=== PATIENT | male | born 1950 | race Caucasian/White ===

== ENCOUNTER 2019-08-15 02:48 | Emergency (ER) | payer MEDICARE ==
--- NOTE | 2019-08-15 03:04 | EDM.PDOC ---
ED HPI GENERAL MEDICAL PROBLEM - General Chief Complaint: General Stated Complaint: MED. CLEARENCE Time Seen by Provider: 08/15/19 03:02 - History of Present Illness INITIAL COMMENTS - FREE TEXT/NARRATIVE: HISTORY AND PHYSICAL: History of present illness: Patient 68-year-old white male in custody of law enforcement who presents for medical clearance and has no complaints Review of systems: As per history of present illness and below otherwise all systems reviewed and negative. Past medical history: As per history of present illness and as reviewed below otherwise noncontributory. Surgical history: As per history of present illness and as reviewed below otherwise noncontributory. Social history: No reported history of drug or alcohol abuse. Family history: As per history of present illness and as reviewed below otherwise noncontributory. Physical exam: HEENT: Atraumatic, normocephalic, pupils reactive, negative for conjunctival pallor or scleral icterus, mucous membranes moist, throat clear, neck supple, nontender, trachea midline. Lungs: Clear to auscultation, breath sounds equal bilaterally, chest nontender. Heart: S1S2, regular, negative for clicks, rubs, or JVD. Abdomen: Soft, nondistended, nontender. Negative for masses or hepatosplenomegaly. Negative for costovertebral tenderness. Pelvis: Stable nontender. Genitourinary: Deferred. Rectal: Deferred. Extremities: Atraumatic, negative for cords or calf pain. Neurovascular unremarkable. Neuro: Awake, alert, oriented. Cranial nerves II through XII unremarkable. Cerebellum unremarkable. Motor and sensory unremarkable throughout. Exam nonfocal. Diagnostics: None Therapeutics: None Impression: 1 medical clearance for incarceration Definitive disposition and diagnosis as appropriate pending reevaluation and review of above. no pain Pain Score (Numeric/FACES): 0 - Related Data Allergies Allergy/AdvReac Type Severity Reaction Status Date / Time No Known Allergies Allergy Verified 10/23/18 17:53 Home Meds: Home Meds Terbinafine [LamISIL] 250 mg PO DAILY 08/15/19 [History] glipiZIDE [Glucotrol XL] 0 mg PO 08/15/19 [History] metFORMIN [Glucophage XR] 500 mg PO BIDMEALS 08/15/19 [History] Past Medical History - Past Health History Medical/Surgical History: Denies Medical/Surgical History - Infectious Disease History Infectious Disease History: Reports: Measles, Mumps Social & Family History - Family History Family Medical History: Noncontributory - Caffeine Use Caffeine Use: Reports: Tea ED ROS GENERAL - Review of Systems Review Of Systems: ROS reveals no pertinent complaints other than HPI. ED EXAM, GENERAL - Physical Exam Exam: See Below (Dictation) Course - Vital Signs Last Recorded V/S: Last Vital Signs Temp 36.0 C 08/15/19 02:56 Pulse 111 H 08/15/19 02:56 Resp 18 08/15/19 02:56 BP 145/82 H 08/15/19 02:56 Pulse Ox 96 08/15/19 02:56 - Orders/Labs/Meds Labs: Laboratory Tests 08/15/19 Range/Units 02:56 POC Glucose 93 (60-110) mg/dL Departure - Departure Time of Disposition: 03:03 Disposition: Home, Self-Care 01 Condition: Good Clinical Impression: Medical clearance for incarceration - Discharge Information Referrals: PCP,None [Primary Care Provider] - Additional Instructions: The following information is given to patients seen in the emergency department who are being discharged to home. This information is to outline your options for follow-up care. We provide all patients seen in our emergency department with a follow-up referral. The need for follow-up, as well as the timing and circumstances, are variable depending upon the specifics of your emergency department visit. If you don't have a primary care physician on staff, we will provide you with a referral. We always advise you to contact your personal physician following an emergency department visit to inform them of the circumstance of the visit and for follow-up with them and/or the need for any referrals to a consulting specialist. The emergency department will also refer you to a specialist when appropriate. This referral assures that you have the opportunity for followup care with a specialist. All of these measure are taken in an effort to provide you with optimal care, which includes your followup. Under all circumstances we always encourage you to contact your private physician who remains a resource for coordinating your care. When calling for followup care, please make the office aware that this follow-up is from your recent emergency room visit. If for any reason you are refused follow-up, please contact the [facility] emergency department at and asked to speak to the emergency department charge nurse. Follow-up primary medical doctor as needed as discussed return as needed as discussed
== END 2019-08-15 03:10 ==
LOC: MW.ED 02:48
DX: Z02.89 Encounter for other administrative examinations (principal)
CPT/HCPCS: 82962; 99283

== ENCOUNTER 2020-01-31 07:08 | Emergency (ER) | payer MEDICARE ==
[2020-01-31 08:39] LABS: BLOOD UREA NITROGEN,BUN 21 mg/dL (7.0-18.0); CARBON DIOXIDE,CO2 28.8 mmol/L (21.0-32.0); CHLORIDE,CL 104 mmol/L (98-107); GLUCOSE RANDOM 110 mg/dL (74-106); POTASSIUM,K 3.9 mmol/L (3.5-5.1); SODIUM,NA 140 mmol/L (136-148)
--- NOTE | 2020-01-31 09:11 | CR ---
Left toes: 3 views of the left toe were obtained. Cystic lesion is noted within the distal phalanx which is well corticated and believed to be old. Mild degenerative change is noted within the first MTP joint. No acute fracture or other bony abnormality is appreciated. Impression: 1. Findings as noted above. 2. No acute bony abnormality is appreciated. Diagnostic code #2 Study was dictated in MDT
--- NOTE | 2020-01-31 09:11 | CR ---
Chest: 2 views of the chest were obtained. Comparison: No prior chest imaging is available. Nodule is noted within the upper right lung most likely representing granuloma. Lungs otherwise are clear with no acute parenchymal change. Mild scoliosis and degenerative change is noted within the spine. Heart size and mediastinum are within normal limits. Minimal scoliosis is noted. Impression: 1. Findings as noted above. 2. Nothing acute is identified. Diagnostic code #2 Study was dictated in MDT
--- NOTE | 2020-01-31 09:32 | EDM.PDOC ---
ED [facility] GENERAL MEDICAL PROBLEM - General Chief Complaint: Laceration Stated Complaint: SOMETHING STUCK IN BIG TOE Time Seen by Provider: 01/31/20 08:24 - History of Present Illness INITIAL COMMENTS - FREE TEXT/NARRATIVE: HPI 69-year-old male with DM presents for evaluation of a punctate lesion on his left great toe that occurred ~2 hours [employer] when he accident dropped a clean pocket knife that struck the dorsal aspect of his toe at the base of the nail with the point of the blade. Patient denies further symptoms. Patient denies chest pain, shortness breath, lightheadedness. TD up to date. Triage note: Pt dropped knife on toe and knife got stuck in foot. Pt is ambulatory. no resp distress. skin pink warm and dry. no resp distress. pt does present to the er in n95 mask and gloves. anxiety noted. M/S/F/SocHx notable for: diabetes; remainder reviewed with patient and in chart. ROS: Negative constitutional, eye, cardiovascular, pulmonary, GI, , MSK, skin , neurologic, psychiatric, endocrine unless noted in the HPI. Exam HR 103, RR 16, BP 140/82, T 36.1C, SaO2 97% on room air. Gen: Pleasant, non-toxic appearing, resting comfortably. HEENT: NC, AT, PEERL, EOMI. Resp: Clear to auscultation bilaterally, normal work of breathing, no accessory muscle usage. Card: irregular regular rate, normal rhythm with no murmurs, rubs, or gallops, extremities warm and well perfused. GI: Non-tender to palpation throughout all quadrants, no focal tenderness at McBurney's point, negative Love's sign, non-distended, no rebound or guarding. : No suprapubic tenderness to palpation. MSK: left great toe visually normal with the exception of approximately 4 mm long clean laceration that is oriented along the length of the toe, laceration is at the mid nail bed base, brisk distal capillary refill with sensation at baseline. Skin: Normal color with no visible lesions. Neuro: alert and oriented 3, no facial asymmetry, vision and hearing WNL. Psych: Mood and affect appropriate. Labs / Imaging: EKG: AFib with a ventricular rate of 123 bpm, no new ST segment changes, new LBBB, or T-wave changes that would suggest acute ischemia. CXR: Nodule is noted within the upper right lung most likely representing granuloma. Lungs otherwise are clear with no acute parenchymal change. Mild scoliosis and degenerative change is noted within the spine. Heart size and mediastinum are within normal limits. Minimal scoliosis is noted. Impression: 1. Findings as noted above. 2. Nothing acute is identified. XR L Great Toe: Cystic lesion is noted within the distal phalanx which is well corticated and believed to be old. Mild degenerative change is noted within the first MTP joint. No acute fracture or other bony abnormality is appreciated. Impression: 1. Findings as noted above. 2. No acute bony abnormality is appreciated. WBC 7.51, HB 15.0, Na 140, K 3.9, glucose 110, magnesium 1.6, troponin <0.050, TSH 2.24, free T4 1.24, creatinine 0.8. MDM Previous chart, nursing note, labs, imaging, and vitals reviewed. A: 69-year-old male with DM presents for evaluation of a punctate lesion on his left great toe that occurred ~2 hours [employer] when he accident dropped a clean pocket knife that struck the dorsal aspect of his toe at the base of the nail with the point of the blade. Evaluation: Laceration - with respect to the patients laceration, this should heal well by secondary intention, the patient is a clean, and up-to-date tetanus. X-ray without evidence of radiographic abnormality. Atrial fibrillation - Patient was noted on pulse oximetry to have an irregular waveform, ECG obtained, patient in atrial fibrillation. With respect to the patients atrial fibrillation he is asymptomatic and has resting heart rate within acceptable limits. As such AV mara agents are not presently indicated. The etiology of the patients atrial fibrillation is currently of unclear, as is the duration of his atrial fibrillation. The patients H&H is within acceptable limits. There is no clear evidence of heart failure by exam or imaging. There is no clear evidence of active infectious process by exam or imaging. The patients ECG is without evidence of changes suggestive of myocarditis, pericarditis, and is troponin is negative. TSH is within normal limits. And, given the absence of chest pain, prior DVT or PE, or other identifiable risk factors further investigation with respect to a PE is not presently indicated. History is without evidence of recent alcohol, caffeine, or other stimulant use that may have triggered todays episode. Patients habitus is not strongly suggestive of IZABEL. Idiopathic is most prominent on the differential given the patients age. With respect anticoagulation, the patient s CHADS-VASc score is 2 (Age - 1, Gender - 0, CHF - 0, HTN - 0, Stroke/TIA/ Thromboembolism - 0, Vascular Disease - 0, DM - 1). However, the patient is suspected to have vascular disease as well as hypertension (not formally diagnosed), as such anticoagulation would be appropriate. After discussion with the patient regarding anticoagulation options for their atrial fibrillation including risks and benefits of different treatment options Apixiban was chosen for anticoagulation. [As the patient weighs > 60 kg, has a Cr < 1.5 mg/dL, and a is not taking any strong CY inducers (Carbamazepine, Enzalutamide, Fosphenytoin, Lumacaftor, Mitotane, Phenobarbital, Phenytoin, Primidone, Rifabutin, Rifampin, or Rifapentine - per patient and chart), the were prescribed 5 mg BID for stroke prophylaxis for their atrial fibrillation. With respect to electrolytes, mild hypomagnesemia noted, patient instructed to increase dietary intake of magnesium and potassium rich foods. Patient to follow up with PCP within 48 hours. Impression: laceration, atrial fibrillation. foot Pain Score (Numeric/FACES): 5 - Related Data Allergies Allergy/AdvReac Type Severity Reaction Status Date / Time No Known Allergies Allergy Verified 01/31/20 07:19 Home Meds: Home Meds Terbinafine [LamISIL] 250 mg PO DAILY 08/15/19 [History] glipiZIDE [Glucotrol XL] 0 mg PO DAILY 08/15/19 [History] metFORMIN [Glucophage XR] 500 mg PO BIDMEALS 08/15/19 [History] Apixaban [Eliquis] 5 mg PO BID #60 tablet 01/31/20 [Rx] Past Medical History - Past Health History Medical/Surgical History: Denies Medical/Surgical History HEENT History: Reports: None Cardiovascular History: Reports: None Respiratory History: Reports: None Gastrointestinal History: Reports: None Genitourinary History: Reports: None Neurological History: Reports: None Psychiatric History: Reports: None Endocrine/Metabolic History: Reports: Diabetes, Type II Hematologic History: Reports: None Immunologic History: Reports: None Oncologic (Cancer) History: Reports: None Dermatologic History: Reports: None - Infectious Disease History Infectious Disease History: Reports: Chicken Pox, Measles, Mumps - Past Surgical History Head Surgeries/Procedures: Reports: None Social & Family History - Family History Family Medical History: Noncontributory - Tobacco Use Smoking Status *Q: Never Smoker - Caffeine Use Caffeine Use: Reports: Tea - Recreational Drug Use Recreational Drug Use: No ED ROS GENERAL - Review of Systems Review Of Systems: See Below ED EXAM, SKIN/RASH Exam: See Below Course - Vital Signs Last Recorded V/S: Last Vital Signs Temp 36.1 C 01/31/20 07:20 Pulse 91 01/31/20 08:34 Resp 16 01/31/20 08:34 BP 138/95 H 01/31/20 08:34 Pulse Ox 98 01/31/20 08:34 - Orders/Labs/Meds Orders: Active Orders 24 hr Category Date Time Status EKG Documentation Completion [RC] STAT Care 01/31/20 07:33 Active Labs: Laboratory Tests 01/31/20 01/31/20 Range/Units 08:00 08:00 WBC 7.51 (4.0-11.0) K/uL RBC 4.84 (4.50-5.90) M/uL Hgb 15.0 (13.0-17.0) g/dL Hct 45.1 (38.0-50.0) % MCV 93.2 (80.0-98.0) fL MCH 31.0 (27.0-32.0) pg MCHC 33.3 (31.0-37.0) g/dL RDW Std Deviation 46.0 (28.0-62.0) fl RDW Coeff of Negro 14 (11.0-15.0) % Plt Count 224 (150-400) K/uL MPV 10.40 (7.40-12.00) fL Neut % (Auto) 44.0 L (48.0-80.0) % Lymph % (Auto) 39.5 (16.0-40.0) % Wirt % (Auto) 12.4 (0.0-15.0) % Eos % (Auto) 3.6 (0.0-7.0) % Baso % (Auto) 0.5 (0.0-1.5) % Neut # (Auto) 3.3 (1.4-5.7) K/uL Lymph # (Auto) 3.0 H (0.6-2.4) K/uL Wirt # (Auto) 0.9 H (0.0-0.8) K/uL Eos # (Auto) 0.3 (0.0-0.7) K/uL Baso # (Auto) 0.0 (0.0-0.1) K/uL Nucleated RBC % 0.0 /100WBC Nucleated RBCs # 0 K/uL Sodium 140 (136-148) mmol/L Potassium 3.9 (3.5-5.1) mmol/L Chloride 104 (98-107) mmol/L Carbon Dioxide 28.8 (21.0-32.0) mmol/L BUN 21 H (7.0-18.0) mg/dL Creatinine 0.8 (0.8-1.3) mg/dL Est Cr Clr Drug Dosing 92.52 mL/min Estimated GFR (MDRD) > 60.0 ml/min Glucose 110 H (74-106) mg/dL Calcium 9.2 (8.5-10.1) mg/dL Magnesium 1.6 L (1.8-2.4) mg/dL Troponin I < 0.050 (0.000-0.056) ng/mL Free T4 1.24 (0.76-1.46) ng/dL TSH 3rd Generation 2.24 (0.36-3.74) uIU/mL Departure - Departure Time of Disposition: 09:30 Disposition: Home, Self-Care 01 Clinical Impression: Laceration, Atrial fibrillation - Discharge Information Prescriptions: Apixaban [Eliquis] 5 mg PO BID #60 tablet Referrals: PCP,None [Primary Care Provider] - Additional Instructions: You were in seen in the [facility] Emergency Department for evaluation of a cut on your left great toe. You were found have a clean cut that should heal well if you keep your wound clean and dry. Should you develop redness, swelling, tenderness, discharge, fevers, or any new symptoms please return immediately to the emergency department. You were also noted to have an irregular heartbeat while you are in the emergency department. This is called atrial fibrillation. This irregular heartbeat can lead to strokes or other serious conditions. You have been prescribed a blood thinner to reduce your risk of having a stroke. As we discussed, this medication increases your risk of bleeding. Should you have any injuries, dark stools, falls, hit your head, or feel lightheaded please return immediately to the emergency department. You need to follow up with your primary care physician within 48 hours for further care. You were also noted to have a mildly low magnesium level, please increase your dietary intake of magnesium rich foods such as bananas, avocados, leafy greens, and legumes. Please read and follow all of the instructions below. You were also noted to have some minor abnormalities on your chest x-ray and x- ray of your toe. These are believed to be nonemergent issues that you should discuss with your primary care physician. A copy of your radiology reports is enclosed below. CXR: Nodule is noted within the upper right lung most likely representing granuloma. Lungs otherwise are clear with no acute parenchymal change. Mild scoliosis and degenerative change is noted within the spine. Heart size and mediastinum are within normal limits. Minimal scoliosis is noted. Impression: 1. Findings as noted above. 2. Nothing acute is identified. XR L Great Toe: Cystic lesion is noted within the distal phalanx which is well corticated and believed to be old. Mild degenerative change is noted within the first MTP joint. No acute fracture or other bony abnormality is appreciated. Impression: 1. Findings as noted above. 2. No acute bony abnormality is appreciated. When calling for follow-up care, please make the office aware that this follow- up is from your recent emergency room visit. If for any reason you are refused follow-up, please contact the [facility] Emergency Department at and asked to speak to the emergency department charge nurse. Your care today was limited to identifying and treating emergent medical problems only. Many people have subtle differences in their test results that require follow up with their outpatient physician(s) to correctly determine if this represents a normal variation or concerning abnormality with respect to your specific health. The care given to you today was limited to identifying and treating emergent medical problems - you need to request a copy of all of your medical records from today's visit and follow up with your outpatient physician(s) to review both today's visit and your overall health. If you have any new symptoms or if you are at all concerned about your health please return immediately to the emergency department. Prescriptions: If you are uninsured or have financial difficulties with filling your prescription(s), you may consider using a free pharmacy discount service such as [employer] ([employer]) or [employer] ([employer]). These services allow you to search for a medication on your phone (or computer) and obtain a coupon that usually has a significant discount from the list garcia at a pharmacy. Your physician as well as [facility] does not have a financial relationship with either of these services. You may also wish to speak with your physician to determine if lower cost prescriptions are possible. Obtaining primary care: 1. [facility] provides pediatrics (children), family medicine (children, adults, and some obstetrical care), and internal medicine (adults). Further specialty care is also available. Same day appointments are available. They may be contacted at [phone] and are open Saturday through Saturday 8 AM to 5 PM. The [facility] are located at [facility], [address] [place] [address] 58. 2. [facility] offers family medicine, internal medicine, women health, and further specialty care. [facility] may be contacted at [phone]. [facility] is located at [address] [place], [place] [id number]. 3. If you have health insurance, please also contact your insurer for a list of accepting providers under your policy, you may contact these providers for further health care. Occupational health: Work related injuries may consider following up with [facility], . Occupational health services are located at [address] [place] [phone] and are open Saturday through Saturday from 7: 30 am to 5:00 pm. Obstetrical and Gynecological Care: [facility], , Saturday through Saturday 8 AM to 5 PM[address] [place] [address]. Eyecare: If you have an eye injury you should follow up with your technology sales consultant or with [facility], at [phone] or [phone] , they are located at [address] [place] [address]. Dental Care Pete Allen DDS. [address] [facility] [place], [place]. Ph. [phone] Jpkory Bonilla Tiffany DDS MS. [address] [facility] [address], [place], [place]. Ph. [phone] Ashok Cordova DDS. 10 10/[address] [place] [address], [place]. Ph. [phone] Bunny Ryder DDS. [address] [facility] [address] [place]. Ph. [phone] Augie Bradshaw DDS PC. [address] [facility] [address] [place], [place]. Ph. Alexandria Muñoz DDS. [address] [facility]. Ph. [phone] [facility]. [address] [place], [place]. Ph. [phone] [facility]. [address], [place], [place]. Ph. [phone] [facility] [address] [place] [id number]. Ph. [facility]. [address] [place] [address] [address] [place]. Ph. [facility]. [address] [place], [place]. Ph. What is atrial fibrillation and atrial flutter? Atrial fibrillation and flutter are a common heart rhythm problem. This condition puts you at risk of stroke, heart attack, and other problems. Another term for atrial fibrillation is "A-fib. Atrial flutter is also called A- flutter. In people with these rhythms, the electrical signals that control the heartbeat are abnormal. As a result, the top 2 chambers of the heart stop pumping effectively, and a small amount of the blood that should move out of these chambers gets left behind. As the blood pools, it can start to form clots. These clots can travel to the brain through the blood vessels, and cause strokes. In some people, these rhythms never go away. In others, these can come and go, even with treatment. If you had one or more bouts of atrial fibrillation or flutter, but have a normal heart rhythm now, ask your doctor what you can do to keep your atrial fibrillation or flutter from coming back. Some people can reduce their chances of having atrial fibrillation or flutter again by: Controlling their blood pressure Not drinking a lot of alcohol in one sitting (limit to 1 to 2 drinks in one day) Cutting down on caffeine Getting treatment for an overactive thyroid gland Getting regular exercise Losing weight (if they are overweight) What are the symptoms of atrial fibrillation or flutter?Some people with atrial fibrillation or flutter have no symptoms. When symptoms do occur, they can include: Feeling as though your heart is racing, skipping beats, or beating out of sync Mild chest "tightness" or pain Feeling lightheaded, dizzy, or like you might pass out Having trouble breathing, especially with exercise Is there a test for atrial fibrillation or flutter? Yes. If your doctor or nurse suspects you have atrial fibrillation or flutter, he or she will probably do a test called an electrocardiogram. This test, also known as an "ECG" or "EKG," measures the electrical activity in your heart. How is atrial fibrillation or flutter treated?In some cases, atrial fibrillation or flutter goes away on its own, even without treatment. But some people do need treatment. Treatment can include one or more of these: Medicines to control the speed or rhythm of the heartbeat Medicines to keep clots from forming A treatment called "cardioversion" that involves applying a mild electrical current to the heart to fix its rhythm Treatments called "ablation," which use heat ("radiofrequency ablation") or cold ("cryoablation") to destroy the small part of the heart that is sending abnormal electrical signals A device called a pacemaker that is implanted in your body and sends electrical signals to the heart to control the heartbeat What will my life be like? Many people with atrial fibrillation or flutter are able to live normal lives. Still, it is important that you take the medicines your doctor prescribes every day. Taking your medicines as directed can help reduce the chances that your Atrial fibrillation or flutter will cause a stroke. Apixaban (Brand Names: Eliquis) * Please take this medication as prescribed. * Please take the medication for the full duration of the prescription. * If you feel you are experiencing a side effect, please call your physician or the emergency department. * This is a blood thinner used to prevent and treat the formation of clots in your blood vessels. This includes clots in the deep veins of your upper or lower extremities (deep vein thromboses), clots in your lungs (pulmonary embolism), or prevention of clots due to an irregular heart beat (atrial fibrillation). * Tell all health care providers that you are on this medication. Apixaban Side Effects: * This is a blood thinner - it is used to prevent life threatening clots in the lungs as well as strokes. However it will increase your risk of both serious and minor bleeding. It was prescribed because your doctor felt that benefits significantly outwieghed the risks. However, Apixaban increases the risk of serious bleeding into your head (hemorrhagic stroke), gastrointestinal bleeding , and bleeding if you suffer a traumatic injury. You may also experience longer periods of bleeding after minor injuries or from your gums when brushing your teeth. Talk to your doctor before taking this medication if you have any of the following: * If you have an allergy to apixaban or any other part of this drug. * If you are allergic to any drugs like this one, any other drugs, foods, or other substances. Tell your doctor about the allergy and what signs you had, like rash; hives; itching; shortness of breath; wheezing; cough; swelling of face, lips, tongue, or throat; or any other signs. * If you have any of these health problems: Active bleeding or liver problems. * If you have had a heart valve replaced. * If you are taking any of these drugs: Carbamazepine, phenytoin, rifampin, or May's wort. * This is not a list of all drugs or health problems that interact with this drug. * Tell your doctor and pharmacist about all of your drugs (prescription or OTC, natural products, vitamins) and health problems. You must check to make sure that it is safe for you to take this drug with all of your drugs and health problems. Do not start, stop, or change the dose of any drug without checking with your doctor. Apixaban Precautions: * If you fall or hurt yourself, or if you hit your head, call your doctor right away. Talk with your doctor even if you feel fine. * You may bleed more easily. Be careful and avoid injury. Use a soft toothbrush and an electric razor. * Very bad and sometimes deadly bleeding problems have happened with this drug. Talk with the doctor. * If you are 80 or older, use this drug with care. You could have more side effects. * Tell your doctor if you are or plan on getting . You will need to talk about the benefits and risks of using this drug while you are . * Tell your doctor if you are breast-feeding. You will need to talk about any risks to your baby. * Do not run out of this medication. Call your doctor well before your prescription runs out. Apixaban Drug Interactions: * The effects of some drugs can change if you take other drugs or herbal products at the same time. This can increase your risk for serious side effects or may cause your medications not to work correctly. These drug interactions are possible, but do not always occur. Your doctor or pharmacist can often prevent or manage interactions by changing how you use your medications or by close monitoring. * To help your doctor and pharmacist give you the best care, be sure to tell your doctor and pharmacist about all the products you use (including prescription drugs, nonprescription drugs, and herbal products) before starting treatment with this product. While using this product, do not start, stop, or change the dosage of any other medicines you are using without your doctor's approval. * Some products that may interact with this drug include: Carbamazepine; Enzalutamide; Fosphenytoin; Lumacaftor; Mitotane; phenobarbital; Phenytoin; Primidone; Rifabutin; Rifampin; Rifapentine, Omacetaxine, Abiraterone Acetate; Amiodarone; Asunaprevir; AtorvaSTATin; Azithromycin (Systemic); Carvedilol; Crizotinib; CycloSPORINE (Systemic); Daclatasvir; Dipyridamole; Dronedarone; Eliglustat; Erythromycin (Systemic); Flibanserin; Ibrutinib; Ivacaftor; Lapatinib; Ledipasvir; Lomitapide; Mefloquine; Mirabegron; NiCARdipine; Nilotinib; Progesterone; Propafenone; Propranolol; QuiNIDine; QuiNINE; Ranolazine; Reserpine; Rolapitant; Simeprevir; SUNItinib; Tacrolimus (Systemic) ; Tamoxifen; Vandetanib; Vemurafenib; Verapamil. Please notify your doctor and pharmacist if you are on any of these medications or start these medications while on Apixaban. * This document does not contain all possible drug interactions. Keep a list of all the products you use. Share this list with your doctor and pharmacist to lessen your risk for serious medication problems. Sepsis Event Note - Evaluation Sepsis Screening Result: No Definite Risk - Focused Exam Vital Signs: Vital Signs Temp Pulse Resp BP Pulse Ox 01/31/20 08:34 91 16 138/95 H 98 01/31/20 07:20 36.1 C 103 H 16 140/82 97 Date Exam was Performed: 01/31/20 Time Exam was Performed: 09:30 - My Orders Last 24 Hours: My Active Orders 01/31/20 07:33 EKG Documentation Completion [RC] STAT - Assessment/Plan Last 24 Hours: My Active Orders 01/31/20 07:33 EKG Documentation Completion [RC] STAT
== END 2020-01-31 09:50 | disposition home or self-care (01) ==
LOC: MW.ED 07:08
DX: S91.112A Laceration without foreign body of left great toe without damage to nail, initial encounter (principal); I48.91 Unspecified atrial fibrillation; E11.9 Type 2 diabetes mellitus without complications; Z79.84 Long term (current) use of oral hypoglycemic drugs; Z79.01 Long term (current) use of anticoagulants; W20.8XXA Other cause of strike by thrown, projected or falling object, initial encounter
CPT/HCPCS: 36415; 71046; 71046-26; 73660-26-TA; 73660-TA; 80048; 83735; 84439; 84443; 84484; 85025; 93005; 99283-25; 99285

== ENCOUNTER 2020-11-21 15:54 | Inpatient (IN) | payer MEDICARE ==
[2020-11-21] MEDS ORDERED: Sodium Chloride 0.9% 10 ML Syringe FLUSH PRN (16:14)
[2020-11-21] MEDS ORDERED: Sodium Chloride 0.9% 2.5 ML Syringe FLUSH PRN (16:14)
[2020-11-21] MEDS ORDERED: Diltiazem 25 MG/5 ML SDV IVPUSH ONE (16:17)
--- NOTE | 2020-11-21 16:23 | EDM.PDOC ---
ED HPI GENERAL MEDICAL PROBLEM - General Chief Complaint: Respiratory Problem Stated Complaint: TROUBLE BREATHING Time Seen by Provider: 11/21/20 15:56 Source of Information: Reports: Patient History Limitations: Reports: No Limitations - History of Present Illness INITIAL COMMENTS - FREE TEXT/NARRATIVE: 70-year-old male past medical history hypertension, fluid retention on Lasix, A. fib (denies beta-christianne or anticoagulant use) presents for shortness of breath worsening over the last month. He has noted subjective feeling of heart racing, difficulty breathing. He denies any chest pain or tightness. He notes worsening lower extremity swelling. He states he is compliant with his Lasix but he is uncertain of the dose. chest Pain Score (Numeric/FACES): 5 - Related Data Allergies Allergy/AdvReac Type Severity Reaction Status Date / Time No Known Allergies Allergy Verified 01/31/20 07:19 Home Meds: Home Meds Terbinafine [LamISIL] 250 mg PO DAILY 08/15/19 [History] glipiZIDE [Glucotrol XL] 0 mg PO DAILY 08/15/19 [History] metFORMIN [Glucophage XR] 500 mg PO BIDMEALS 08/15/19 [History] Apixaban [Eliquis] 5 mg PO BID #60 tablet 01/31/20 [Rx] Past Medical History - Past Health History Medical/Surgical History: Denies Medical/Surgical History HEENT History: Reports: None Cardiovascular History: Reports: None Respiratory History: Reports: None Gastrointestinal History: Reports: None Genitourinary History: Reports: None Neurological History: Reports: None Psychiatric History: Reports: None Endocrine/Metabolic History: Reports: Diabetes, Type II Hematologic History: Reports: None Immunologic History: Reports: None Oncologic (Cancer) History: Reports: None Dermatologic History: Reports: None - Infectious Disease History Infectious Disease History: Reports: Chicken Pox, Measles, Mumps - Past Surgical History Head Surgeries/Procedures: Reports: None Social & Family History - Family History Family Medical History: No Pertinent Family History - Caffeine Use Caffeine Use: Reports: Tea ED ROS GENERAL - Review of Systems Review Of Systems: Comprehensive ROS is negative, except as noted in HPI. ED EXAM, GENERAL - Physical Exam Exam: See Below Exam Limited By: No Limitations General Appearance: Alert, WD/WN, No Apparent Distress Throat/Mouth: Normal Voice, No Airway Compromise Head: Atraumatic, Normocephalic Neck: Normal Inspection Respiratory/Chest: No Respiratory Distress, Lungs Clear, Normal Breath Sounds, No Accessory Muscle Use Cardiovascular: Tachycardia, Other (b/l LE pitting edema) GI/Abdominal: Soft, Non-Tender Extremities: Normal Inspection Neurological: Alert Psychiatric: Normal Affect, Normal Mood Skin Exam: Warm, Dry, Intact, Normal Color #1 Interpretation EKG Date: 11/21/20 Time: 15:56 Rhythm: A-Fib Rate (Beats/Min): 135 [place]: Normal P-Wave: Absent QRS: Normal ST-T: Normal Comparison: NA - No Prior EKG EKG Interpretation Comments: Afib RVR without acute ischemic changes Course - Vital Signs Last Recorded V/S: Last Vital Signs Temp 98 F 11/21/20 15:55 Pulse 101 H 11/21/20 17:42 Resp 16 11/21/20 17:42 BP 96/55 L 11/21/20 17:42 Pulse Ox 95 11/21/20 17:42 - Orders/Labs/Meds Orders: Active Orders 24 hr Category Date Time Status Cardiac Monitoring [RC] . DIRECTED Care 11/21/20 16:14 Active EKG Documentation Completion [RC] STAT Care 11/21/20 16:14 Active Pulse Oximetry [RC] ASDIRECTED Care 11/21/20 16:14 Active UA RFX JUANA AND CULT IF INDIC [URIN] Stat Lab 11/21/20 18:37 Ordered Diltiazem [Cardizem] 100 mg Med 11/21/20 16:30 Active Sodium Chloride 0.9% [Normal Saline] 100 ml IV NOW Magnesium Sulfate/Water [Magnesium Sulfate in Water 2 Med 11/21/20 17:40 Active GM/50 ML] 2 gm Premix Bag 1 bag IV ONETIME Sodium Chloride 0.9% [Saline Flush] Med 11/21/20 16:14 Active 10 ml FLUSH ASDIRECTED PRN Sodium Chloride 0.9% [Saline Flush] Med 11/21/20 16:14 Active 2.5 ml FLUSH ASDIRECTED PRN Saline Lock Insert [OM.PC] Stat Oth 11/21/20 16:14 Ordered Medication Orders Diltiazem HCl 100 mg/ Sodium (Chloride) 100 mls @ 5 mls/hr IV NOW [place]; Protocol Last Admin: 11/21/20 16:36 Dose: 5 mg/hr, 5 mls/hr Documented by: STANLEY Magnesium Sulfate 2 gm/ Premix 50 mls @ 50 mls/hr IV ONETIME ONE Stop: 11/21/20 18:39 Last Admin: 11/21/20 18:03 Dose: 50 mls/hr Documented by: STANLEY Sodium Chloride (Saline Flush) 10 ml FLUSH ASDIRECTED PRN PRN Reason: Keep Vein Open Last Admin: 11/21/20 16:37 Dose: 10 ml Documented by: STANLEY Sodium Chloride (Saline Flush) 2.5 ml FLUSH ASDIRECTED PRN PRN Reason: Keep Vein Open Last Admin: 11/21/20 16:37 Dose: 2.5 ml Documented by: [id number] Labs: Laboratory Tests 11/21/20 11/21/20 11/21/20 Range/Units 16:03 16:03 16:03 WBC 8.62 (4.0-11.0) K/uL RBC 5.34 (4.50-5.90) M/uL Hgb 16.5 (13.0-17.0) g/dL Hct 50.2 H (38.0-50.0) % MCV 94.0 (80.0-98.0) fL MCH 30.9 (27.0-32.0) pg MCHC 32.9 (31.0-37.0) g/dL RDW Std Deviation 49.6 (28.0-62.0) fl RDW Coeff of Negro 15 (11.0-15.0) % Plt Count 190 (150-400) K/uL MPV 10.70 (7.40-12.00) fL Neut % (Auto) 56.4 (48.0-80.0) % Lymph % (Auto) 24.8 (16.0-40.0) % [place] % (Auto) 15.1 H (0.0-15.0) % Eos % (Auto) 2.8 (0.0-7.0) % Baso % (Auto) 0.9 (0.0-1.5) % Neut # (Auto) 4.9 (1.4-5.7) K/uL Lymph # (Auto) 2.1 (0.6-2.4) K/uL [place] # (Auto) 1.3 H (0.0-0.8) K/uL Eos # (Auto) 0.2 (0.0-0.7) K/uL Baso # (Auto) 0.1 (0.0-0.1) K/uL Nucleated RBC % 0.0 /100WBC Nucleated RBCs # 0 K/uL INR 1.04 APTT 25.2 (18.6-31.3) SEC Lactate (0.20-2.00) mmol/L Sodium (136-148) mmol/L Potassium (3.5-5.1) mmol/L Chloride (98-107) mmol/L Carbon Dioxide (21.0-32.0) mmol/L BUN (7.0-18.0) mg/dL Creatinine (0.8-1.3) mg/dL Est Cr Clr Drug Dosing mL/min Estimated GFR (MDRD) ml/min Glucose (74-106) mg/dL Calcium (8.5-10.1) mg/dL Magnesium (1.8-2.4) mg/dL Total Bilirubin (0.2-1.0) mg/dL AST (15-37) IU/L ALT (14-63) IU/L Alkaline Phosphatase (46-116) U/L Troponin I (0.000-0.056) ng/mL B-Natriuretic Peptide 496 H (<100) PG/ML Total Protein (6.4-8.2) g/dL Albumin (3.4-5.0) g/dL Globulin (2.6-4.0) g/dL Albumin/Globulin Ratio (0.9-1.6) TSH 3rd Generation (0.36-3.74) uIU/mL SARS-CoV-2 RNA (TARAS) (NEGATIVE) 11/21/20 11/21/20 11/21/20 Range/Units 16:03 16:42 16:43 WBC (4.0-11.0) K/uL RBC (4.50-5.90) M/uL Hgb (13.0-17.0) g/dL Hct (38.0-50.0) % MCV (80.0-98.0) fL MCH (27.0-32.0) pg MCHC (31.0-37.0) g/dL RDW Std Deviation (28.0-62.0) fl RDW Coeff of Negro (11.0-15.0) % Plt Count (150-400) K/uL MPV (7.40-12.00) fL Neut % (Auto) (48.0-80.0) % Lymph % (Auto) (16.0-40.0) % [place] % (Auto) (0.0-15.0) % Eos % (Auto) (0.0-7.0) % Baso % (Auto) (0.0-1.5) % Neut # (Auto) (1.4-5.7) K/uL Lymph # (Auto) (0.6-2.4) K/uL [place] # (Auto) (0.0-0.8) K/uL Eos # (Auto) (0.0-0.7) K/uL Baso # (Auto) (0.0-0.1) K/uL Nucleated RBC % /100WBC Nucleated RBCs # K/uL INR APTT (18.6-31.3) SEC Lactate 3.1 H* (0.20-2.00) mmol/L Sodium 141 (136-148) mmol/L Potassium 4.1 (3.5-5.1) mmol/L Chloride 101 (98-107) mmol/L Carbon Dioxide 27.1 (21.0-32.0) mmol/L BUN 22 H (7.0-18.0) mg/dL Creatinine 1.0 (0.8-1.3) mg/dL Est Cr Clr Drug Dosing 66.10 mL/min Estimated GFR (MDRD) > 60.0 ml/min Glucose 130 H (74-106) mg/dL Calcium 9.4 (8.5-10.1) mg/dL Magnesium 1.5 L (1.8-2.4) mg/dL Total Bilirubin 0.8 (0.2-1.0) mg/dL AST 55 H (15-37) IU/L ALT 71 H (14-63) IU/L Alkaline Phosphatase 115 (46-116) U/L Troponin I < 0.050 (0.000-0.056) ng/mL B-Natriuretic Peptide (<100) PG/ML Total Protein 6.9 (6.4-8.2) g/dL Albumin 3.1 L (3.4-5.0) g/dL Globulin 3.8 (2.6-4.0) g/dL Albumin/Globulin Ratio 0.8 L (0.9-1.6) TSH 3rd Generation 3.94 H (0.36-3.74) uIU/mL SARS-CoV-2 RNA (TARAS) (NEGATIVE) 11/21/20 Range/Units 17:00 WBC (4.0-11.0) K/uL RBC (4.50-5.90) M/uL Hgb (13.0-17.0) g/dL Hct (38.0-50.0) % MCV (80.0-98.0) fL MCH (27.0-32.0) pg MCHC (31.0-37.0) g/dL RDW Std Deviation (28.0-62.0) fl RDW Coeff of Negro (11.0-15.0) % Plt Count (150-400) K/uL MPV (7.40-12.00) fL Neut % (Auto) (48.0-80.0) % Lymph % (Auto) (16.0-40.0) % [place] % (Auto) (0.0-15.0) % Eos % (Auto) (0.0-7.0) % Baso % (Auto) (0.0-1.5) % Neut # (Auto) (1.4-5.7) K/uL Lymph # (Auto) (0.6-2.4) K/uL [place] # (Auto) (0.0-0.8) K/uL Eos # (Auto) (0.0-0.7) K/uL Baso # (Auto) (0.0-0.1) K/uL Nucleated RBC % /100WBC Nucleated RBCs # K/uL INR APTT (18.6-31.3) SEC Lactate (0.20-2.00) mmol/L Sodium (136-148) mmol/L Potassium (3.5-5.1) mmol/L Chloride (98-107) mmol/L Carbon Dioxide (21.0-32.0) mmol/L BUN (7.0-18.0) mg/dL Creatinine (0.8-1.3) mg/dL Est Cr Clr Drug Dosing mL/min Estimated GFR (MDRD) ml/min Glucose (74-106) mg/dL Calcium (8.5-10.1) mg/dL Magnesium (1.8-2.4) mg/dL Total Bilirubin (0.2-1.0) mg/dL AST (15-37) IU/L ALT (14-63) IU/L Alkaline Phosphatase (46-116) U/L Troponin I (0.000-0.056) ng/mL B-Natriuretic Peptide (<100) PG/ML Total Protein (6.4-8.2) g/dL Albumin (3.4-5.0) g/dL Globulin (2.6-4.0) g/dL Albumin/Globulin Ratio (0.9-1.6) TSH 3rd Generation (0.36-3.74) uIU/mL SARS-CoV-2 RNA (TARAS) NEGATIVE (NEGATIVE) Meds: Medications Generic Name Dose Route Start Last Admin Trade Name Freq PRN Reason Stop Dose Admin Diltiazem HCl 100 mg/ Sodium 100 mls @ 5 mls/hr 11/21/20 16:30 11/21/20 16:36 Chloride IV 5 mg/hr NOW [place] 5 mls/hr Administration Protocol 5 MG/HR Magnesium Sulfate 2 gm/ Premix 50 mls @ 50 mls/hr 11/21/20 17:40 11/21/20 18:03 IV 11/21/20 18:39 50 mls/hr ONETIME ONE Administration Sodium Chloride 10 ml 11/21/20 16:14 11/21/20 16:37 Saline Flush FLUSH 10 ml ASDIRECTED PRN Administration Keep Vein Open Sodium Chloride 2.5 ml 11/21/20 16:14 11/21/20 16:37 Saline Flush FLUSH 2.5 ml ASDIRECTED PRN Administration Keep Vein Open Discontinued Medications Generic Name Dose Route Start Last Admin Trade Name Freq PRN Reason Stop Dose Admin Diltiazem HCl 25 mg 11/21/20 16:17 11/21/20 16:37 Diltiazem IVPUSH 11/21/20 16:18 25 mg ONETIME ONE Administration - Re-Assessments/Exams Free Text/Narrative Re-Assessment/Exam: 11/21/20 16:32 Patient presents in A. fib RVR. He seems to have poor medical literacy. Will treat for A. fib RVR, will get extensive labs, anticipate admission. 11/21/20 18:38 Hospitalist agrees to admit under his service patient is agreeable. Departure - Departure Time of Disposition: 18:38 Disposition: Admitted As Inpatient 68 Condition: Good Clinical Impression: Atrial fibrillation with RVR - Discharge Information [facility] - Forms: ED Department Discharge Critical Care Note - Critical Care Note Total Time (mins): 35 Sepsis Event Note (ED) - Focused Exam Vital Signs: Vital Signs Temp Pulse Resp BP Pulse Ox 11/21/20 17:42 101 H 16 96/55 L 95 11/21/20 17:22 96 17 108/78 94 L 11/21/20 17:02 100 16 102/67 94 L 11/21/20 16:50 105 H 11/21/20 16:45 137 H 16 101/82 96 11/21/20 16:39 135 H 17 132/69 96 11/21/20 15:55 98 F 131 H 22 H 132/92 H 96 - My Orders Last 24 Hours: My Active Orders 11/21/20 16:14 Cardiac Monitoring [RC] . DIRECTED EKG Documentation Completion [RC] STAT Pulse Oximetry [RC] ASDIRECTED Sodium Chloride 0.9% [Saline Flush] 10 ml FLUSH ASDIRECTED PRN Sodium Chloride 0.9% [Saline Flush] 2.5 ml FLUSH ASDIRECTED PRN Saline Lock Insert [OM.PC] Stat 11/21/20 16:30 Diltiazem [Cardizem] 100 mg Sodium Chloride 0.9% [Normal Saline] 100 ml IV NOW 11/21/20 17:40 Magnesium Sulfate/Water [Magnesium Sulfate in Water 2 GM/50 ML] 2 gm Premix Bag 1 bag IV ONETIME 11/21/20 18:37 UA RFX JUANA AND CULT IF INDIC [URIN] Stat - Assessment/Plan Last 24 Hours: My Active Orders 11/21/20 16:14 Cardiac Monitoring [RC] . DIRECTED EKG Documentation Completion [RC] STAT Pulse Oximetry [RC] ASDIRECTED Sodium Chloride 0.9% [Saline Flush] 10 ml FLUSH ASDIRECTED PRN Sodium Chloride 0.9% [Saline Flush] 2.5 ml FLUSH ASDIRECTED PRN Saline Lock Insert [OM.PC] Stat 11/21/20 16:30 Diltiazem [Cardizem] 100 mg Sodium Chloride 0.9% [Normal Saline] 100 ml IV NOW 11/21/20 17:40 Magnesium Sulfate/Water [Magnesium Sulfate in Water 2 GM/50 ML] 2 gm Premix Bag 1 bag IV ONETIME 11/21/20 18:37 UA RFX JUANA AND CULT IF INDIC [URIN] Stat
[2020-11-21] MEDS ORDERED: Diltiazem 100 MG in Sodium Chloride 0.9% 100 ML IV SCH (16:30)
--- NOTE | 2020-11-21 17:01 | CR ---
Indication: Atrial fibrillation and shortness of breath Technique: Chest 1 view Comparison: Chest x-ray 01/31/2020 Findings/Impression: Cardiovascular and mediastinum: Upper normal heart size. Atherosclerosis. Lungs and pleural space: Small right pleural effusion with right basilar consolidation consistent with atelectasis or pneumonia. Calcified granuloma redemonstrated within the right mid lung. Bones and soft tissues: Mild widening of the left acromioclavicular joint, either posttraumatic or postsurgical. Dictated by Attila Rust MD @ Nov 21 2020 4:59PM Signed by Dr. Attila Rust @ Nov 21 2020 5:00PM
[2020-11-21] MEDS ORDERED: Magnesium Sulfate/Water 2 GM in Premix Bag 1 BAG IV ONE (17:40)
[2020-11-21 18:14] LABS: BLOOD UREA NITROGEN,BUN 22 mg/dL (7.0-18.0); CARBON DIOXIDE,CO2 27.1 mmol/L (21.0-32.0); CHLORIDE,CL 101 mmol/L (98-107); GLUCOSE RANDOM 130 mg/dL (74-106); POTASSIUM,K 4.1 mmol/L (3.5-5.1); SODIUM,NA 141 mmol/L (136-148)
--- NOTE | 2020-11-21 19:30 | PCM.HP.2 ---
<Zakia Mo - Last Filed: 11/21/20 20:23> H&P History of Present Illness - General Date of Service: 11/21/20 Admit Problem/Dx: Admission Diagnosis/Problem Admission Diagnosis/Problem Atrial fibrillation History Limitations: Reports: No Limitations - History of Present Illness Initial Comments - Free Text/Narative: Patient is a 70-year-old male with a significant past medical history of atrial fibrillation, congestive heart failure with ejection fraction of 25 to 30% with severe left ventricular dysfunction, hypertension, type 2 diabetes presenting to the ED secondary to worsening shortness of breath and irregular heart rate. ED course: EKG significant for atrial fibrillation with initial heart rates in the 130s. Blood pressure of 108/78. CBC nominal. CMP transaminitis. Elevated BNP of 496 Covid negative Started on diltiazem drip. Chest x-ray: Small right pleural effusion with right basilar consolidation consistent with atelectasis or pneumonia calcified granuloma redemonstrated within the right mid lung. Bedside: Patient endorsing significant shortness of breath for the past 3 months but worsened over the past couple of days. Endorses having been seen by his primary care provider and advised that he has atrial fibrillation and congestive heart failure. Patient however was resistant to the idea of starting on a blood thinner and rate controlling medications and has not been on it. However has been taking his Lasix 40 daily and for the last couple of days twice daily. Mentions and lower extremity swelling has worsened and shortness of breath has worsened to the point where he is not able to fall asleep while in the supine position. Patient more or less sleeps in the upright position. Patient denies any chest pain and or shortness of breath at rest but does feel shortness of breath with exertion even with minimal exertion. Denies any significant history of smoking or alcohol abuse and or illicit drug use. chest Pain Score (Numeric/FACES): 5 - Related Data Allergies/Adverse Reactions: Allergies Allergy/AdvReac Type Severity Reaction Status Date / Time No Known Allergies Allergy Verified 01/31/20 07:19 Home Medications: Home Meds Terbinafine [LamISIL] 250 mg PO DAILY 08/15/19 [History] glipiZIDE [Glucotrol XL] 10 mg PO DAILY 08/15/19 [History] metFORMIN [Glucophage XR] 1,000 mg PO BIDMEALS 08/15/19 [History] Apixaban [Eliquis] 5 mg PO BID #60 tablet 01/31/20 [Rx] Furosemide [Lasix] 40 mg PO BID 11/21/20 [History] Past Medical History - Past Health History Medical/Surgical History: Denies Medical/Surgical History HEENT History: Reports: None Cardiovascular History: Reports: Other (See Below) Other Cardiovascular History: pt. states he has a history of "heart flutters' and a "mild heart attack" Respiratory History: Reports: None Gastrointestinal History: Reports: None Genitourinary History: Reports: None Neurological History: Reports: None Psychiatric History: Reports: None Endocrine/Metabolic History: Reports: Diabetes, Type II Hematologic History: Reports: None Immunologic History: Reports: None Oncologic (Cancer) History: Reports: None Dermatologic History: Reports: None - Infectious Disease History Infectious Disease History: Reports: Chicken Pox, Measles, Mumps - Past Surgical History Head Surgeries/Procedures: Reports: None Social & Family History - Family History Family Medical History: No Pertinent Family History - Caffeine Use Caffeine Use: Reports: None - Recreational Drug Use Recreational Drug Use: No H&P Review of Systems - Review of Systems: Review Of Systems: See Below General: Reports: Fatigue HEENT: Reports: No Symptoms Pulmonary: Reports: Shortness of Breath, Cough, Sputum. Denies: Wheezing, Pleuritic Chest Pain Cardiovascular: Reports: Palpitations, Dyspnea on Exertion, Orthopnea, Edema. Denies: Chest Pain, Syncope Gastrointestinal: Reports: Abdominal Pain, Nausea. Denies: Constipation, Diarrhea, Decreased Appetite, Vomiting Genitourinary: Reports: No Symptoms Musculoskeletal: Reports: Leg Pain Skin: Reports: No Symptoms Psychiatric: Reports: No Symptoms Neurological: Denies: Confusion, Dizziness, Headache Hematologic/Lymphatic: Denies: Easy Bleeding Exam - Exam Exam: See Below - Vital Signs Vital Signs: Last Vital Signs Temp 98 F 11/21/20 15:55 Pulse 95 11/21/20 18:23 Resp 17 11/21/20 18:23 BP 93/66 11/21/20 18:23 Pulse Ox 98 11/21/20 18:23 Weight: 77.564 kg - Exam Quality Assessment: No: Supplemental Oxygen General: Alert, Oriented, Cooperative HEENT: EOMI, Mucosa Moist & [place] Neck: Supple, Trachea Midline Lungs: Other (minimal crackles at bases. coarse bs w. expiration ) Cardiovascular: Irregular Rhythm, Tachycardia, Other (could not appreciate hepato-jugular reflex ) GI/Abdominal Exam: Soft, Non-Tender Back Exam: Decreased Range of Motion Extremities: Pedal Edema Neurological: Cranial Nerves Intact Neuro Extensive - Mental Status: Alert Neuro Extensive - Motor, Sensory, Reflexes: Normal Gait - Patient Data Lab Results Last 24 hrs: Laboratory Results - last 24 hr 11/21/20 11/21/20 11/21/20 Range/Units 16:03 16:03 16:03 WBC 8.62 (4.0-11.0) K/uL RBC 5.34 (4.50-5.90) M/uL Hgb 16.5 (13.0-17.0) g/dL Hct 50.2 H (38.0-50.0) % MCV 94.0 (80.0-98.0) fL MCH 30.9 (27.0-32.0) pg MCHC 32.9 (31.0-37.0) g/dL RDW Std Deviation 49.6 (28.0-62.0) fl RDW Coeff of Negro 15 (11.0-15.0) % Plt Count 190 (150-400) K/uL MPV 10.70 (7.40-12.00) fL Neut % (Auto) 56.4 (48.0-80.0) % Lymph % (Auto) 24.8 (16.0-40.0) % Mccormick % (Auto) 15.1 H (0.0-15.0) % Eos % (Auto) 2.8 (0.0-7.0) % Baso % (Auto) 0.9 (0.0-1.5) % Neut # (Auto) 4.9 (1.4-5.7) K/uL Lymph # (Auto) 2.1 (0.6-2.4) K/uL Mccormick # (Auto) 1.3 H (0.0-0.8) K/uL Eos # (Auto) 0.2 (0.0-0.7) K/uL Baso # (Auto) 0.1 (0.0-0.1) K/uL Nucleated RBC % 0.0 /100WBC Nucleated RBCs # 0 K/uL INR 1.04 APTT 25.2 (18.6-31.3) SEC Lactate (0.20-2.00) mmol/L Sodium (136-148) mmol/L Potassium (3.5-5.1) mmol/L Chloride (98-107) mmol/L Carbon Dioxide (21.0-32.0) mmol/L BUN (7.0-18.0) mg/dL Creatinine (0.8-1.3) mg/dL Est Cr Clr Drug Dosing mL/min Estimated GFR (MDRD) ml/min Glucose (74-106) mg/dL Calcium (8.5-10.1) mg/dL Magnesium (1.8-2.4) mg/dL Total Bilirubin (0.2-1.0) mg/dL AST (15-37) IU/L ALT (14-63) IU/L Alkaline Phosphatase (46-116) U/L Troponin I (0.000-0.056) ng/mL B-Natriuretic Peptide 496 H (<100) PG/ML Total Protein (6.4-8.2) g/dL Albumin (3.4-5.0) g/dL Globulin (2.6-4.0) g/dL Albumin/Globulin Ratio (0.9-1.6) TSH 3rd Generation (0.36-3.74) uIU/mL SARS-CoV-2 RNA (TARAS) (NEGATIVE) 11/21/20 11/21/20 11/21/20 Range/Units 16:03 16:42 16:43 WBC (4.0-11.0) K/uL RBC (4.50-5.90) M/uL Hgb (13.0-17.0) g/dL Hct (38.0-50.0) % MCV (80.0-98.0) fL MCH (27.0-32.0) pg MCHC (31.0-37.0) g/dL RDW Std Deviation (28.0-62.0) fl RDW Coeff of Negro (11.0-15.0) % Plt Count (150-400) K/uL MPV (7.40-12.00) fL Neut % (Auto) (48.0-80.0) % Lymph % (Auto) (16.0-40.0) % Mccormick % (Auto) (0.0-15.0) % Eos % (Auto) (0.0-7.0) % Baso % (Auto) (0.0-1.5) % Neut # (Auto) (1.4-5.7) K/uL Lymph # (Auto) (0.6-2.4) K/uL Mccormick # (Auto) (0.0-0.8) K/uL Eos # (Auto) (0.0-0.7) K/uL Baso # (Auto) (0.0-0.1) K/uL Nucleated RBC % /100WBC Nucleated RBCs # K/uL INR APTT (18.6-31.3) SEC Lactate 3.1 H* (0.20-2.00) mmol/L Sodium 141 (136-148) mmol/L Potassium 4.1 (3.5-5.1) mmol/L Chloride 101 (98-107) mmol/L Carbon Dioxide 27.1 (21.0-32.0) mmol/L BUN 22 H (7.0-18.0) mg/dL Creatinine 1.0 (0.8-1.3) mg/dL Est Cr Clr Drug Dosing 66.10 mL/min Estimated GFR (MDRD) > 60.0 ml/min Glucose 130 H (74-106) mg/dL Calcium 9.4 (8.5-10.1) mg/dL Magnesium 1.5 L (1.8-2.4) mg/dL Total Bilirubin 0.8 (0.2-1.0) mg/dL AST 55 H (15-37) IU/L ALT 71 H (14-63) IU/L Alkaline Phosphatase 115 (46-116) U/L Troponin I < 0.050 (0.000-0.056) ng/mL B-Natriuretic Peptide (<100) PG/ML Total Protein 6.9 (6.4-8.2) g/dL Albumin 3.1 L (3.4-5.0) g/dL Globulin 3.8 (2.6-4.0) g/dL Albumin/Globulin Ratio 0.8 L (0.9-1.6) TSH 3rd Generation 3.94 H (0.36-3.74) uIU/mL SARS-CoV-2 RNA (TARAS) (NEGATIVE) 11/21/20 Range/Units 17:00 WBC (4.0-11.0) K/uL RBC (4.50-5.90) M/uL Hgb (13.0-17.0) g/dL Hct (38.0-50.0) % MCV (80.0-98.0) fL MCH (27.0-32.0) pg MCHC (31.0-37.0) g/dL RDW Std Deviation (28.0-62.0) fl RDW Coeff of Negro (11.0-15.0) % Plt Count (150-400) K/uL MPV (7.40-12.00) fL Neut % (Auto) (48.0-80.0) % Lymph % (Auto) (16.0-40.0) % Mccormick % (Auto) (0.0-15.0) % Eos % (Auto) (0.0-7.0) % Baso % (Auto) (0.0-1.5) % Neut # (Auto) (1.4-5.7) K/uL Lymph # (Auto) (0.6-2.4) K/uL Mccormick # (Auto) (0.0-0.8) K/uL Eos # (Auto) (0.0-0.7) K/uL Baso # (Auto) (0.0-0.1) K/uL Nucleated RBC % /100WBC Nucleated RBCs # K/uL INR APTT (18.6-31.3) SEC Lactate (0.20-2.00) mmol/L Sodium (136-148) mmol/L Potassium (3.5-5.1) mmol/L Chloride (98-107) mmol/L Carbon Dioxide (21.0-32.0) mmol/L BUN (7.0-18.0) mg/dL Creatinine (0.8-1.3) mg/dL Est Cr Clr Drug Dosing mL/min Estimated GFR (MDRD) ml/min Glucose (74-106) mg/dL Calcium (8.5-10.1) mg/dL Magnesium (1.8-2.4) mg/dL Total Bilirubin (0.2-1.0) mg/dL AST (15-37) IU/L ALT (14-63) IU/L Alkaline Phosphatase (46-116) U/L Troponin I (0.000-0.056) ng/mL B-Natriuretic Peptide (<100) PG/ML Total Protein (6.4-8.2) g/dL Albumin (3.4-5.0) g/dL Globulin (2.6-4.0) g/dL Albumin/Globulin Ratio (0.9-1.6) TSH 3rd Generation (0.36-3.74) uIU/mL SARS-CoV-2 RNA (TARAS) NEGATIVE (NEGATIVE) Result Diagrams: 11/21/20 16:03 11/21/20 16:42 Sepsis Event Note - Evaluation Sepsis Screening Result: No Definite Risk - Focused Exam Vital Signs: Vital Signs Temp Pulse Resp BP Pulse Ox 11/21/20 18:23 95 17 93/66 98 11/21/20 17:42 101 H 16 96/55 L 95 11/21/20 17:22 96 17 108/78 94 L 11/21/20 17:02 100 16 102/67 94 L 11/21/20 16:50 105 H 11/21/20 16:45 137 H 16 101/82 96 11/21/20 16:39 135 H 17 132/69 96 11/21/20 15:55 98 F 131 H 22 H 132/92 H 96 - Problem List (1) CHF (congestive heart failure) SNOMED Code(s): 29224555 ICD Code: I50.9 - HEART FAILURE, UNSPECIFIED Status: Acute Current Visit: Yes (2) DM (diabetes mellitus) SNOMED Code(s): 91456088 ICD Code: E11.9 - TYPE 2 DIABETES MELLITUS WITHOUT COMPLICATIONS Status: Acute Current Visit: Yes (3) Atrial fibrillation with RVR SNOMED Code(s): 394761314039253 ICD Code: I48.91 - UNSPECIFIED ATRIAL FIBRILLATION Status: Acute Current Visit: Yes Problem List Initiated/Reviewed/Updated: Yes Orders Last 24hrs: Active Orders 24 hr Category Date Time Status Admission Status [Patient Status] [ADT] Routine ADT 11/21/20 19:13 Active Cardiac Monitoring [RC] . DIRECTED Care 11/21/20 16:14 Active Pulse Oximetry [RC] ASDIRECTED Care 11/21/20 16:14 Active LACTATE WITH REFLEX [BG] Stat Lab 11/21/20 19:26 Ordered UA RFX CHAPINCITO AND CULT IF INDIC [URIN] Stat Lab 11/21/20 18:37 Ordered Diltiazem [Cardizem] 100 mg Med 11/21/20 16:30 Active Sodium Chloride 0.9% [Normal Saline] 100 ml IV NOW Sodium Chloride 0.9% [Saline Flush] Med 11/21/20 16:14 Active 10 ml FLUSH ASDIRECTED PRN Sodium Chloride 0.9% [Saline Flush] Med 11/21/20 16:14 Active 2.5 ml FLUSH ASDIRECTED PRN Saline Lock Insert [OM.PC] Stat Oth 11/21/20 16:14 Ordered Medication Orders Diltiazem HCl 100 mg/ Sodium (Chloride) 100 mls @ 5 mls/hr IV NOW [facility]; Protocol Last Admin: 11/21/20 16:36 Dose: 5 mg/hr, 5 mls/hr Documented by: [email or web address] Sodium Chloride (Saline Flush) 10 ml FLUSH ASDIRECTED PRN PRN Reason: Keep Vein Open Last Admin: 11/21/20 16:37 Dose: 10 ml Documented by: [id number] Sodium Chloride (Saline Flush) 2.5 ml FLUSH ASDIRECTED PRN PRN Reason: Keep Vein Open Last Admin: 11/21/20 16:37 Dose: 2.5 ml Documented by: [id number] Assessment/Plan Comment:: Assessment: 1. Atrial fibrillation with rapid ventricular rate 2. Congestive heart failure/systolic: Acute exacerbation with elevated BNP 3. Right pleural effusion with consolidation: Atelectasis versus pneumonia 4. Elevated lactate 5. Hypomagnesemia 6. Transaminitis 7. Past medical history; type 2 diabetes, hypertension, congestive heart failure, atrial fibrillation, medical noncompliance Plan Admit to inpatient. Full code. I's and O's per routine vitals per routine. Daily weights. Sodium restriction. Heart healthy diet. telemetry 1. Atrial fibrillation with rapid ventricular rate: Continue diltiazem drip : rate control. Patient at baseline does not take any rate controlling medication/an ticoagulation. Discuss at discharge Discontinue diltiazem and switch to amiodarone. We will start loading dose with IV drip thereafter. Continue telemetry Full dose Lovenox 2. CHF systolic: Elevated BNP . Trial 1 dose of 40 Lasix now; evaluate for response and adjust accordingly. Daily weights. Sodium restriction to 2 g. Fluid restrictions to 1.5 L Echo September 2020: Ejection fraction 25 to 30% with severe left ventricular dysfunction. 3. Right pleural effusion with consolidation: IV Lasix 40 Concern for possible pneumonia as being tipping point for heart failure; initiate azithromycin/ceftriaxone. Blood and sputum cultures ordered. Adjust antibiotics accordingly. 4. Elevated lactate: Most likely secondary to elevated heart rate; now resolved. 5. Hypomagnesemia: Received 2 g in ED; recheck magnesium in a.m. 6. Past medical history; type 2 diabetes: Sliding scale insulin plus 3 times daily [facility], <Reggie [place] J - Last Filed: 11/21/20 22:39> H&P History of Present Illness - General Admit Problem/Dx: Admission Diagnosis/Problem Admission Diagnosis/Problem Atrial fibrillation Exam - Vital Signs Vital Signs: Last Vital Signs Temp 36.6 C 11/21/20 15:55 Pulse 67 11/21/20 19:37 Resp 18 11/21/20 19:37 BP 108/84 11/21/20 19:37 Pulse Ox 96 11/21/20 19:37 - Patient Data Lab Results Last 24 hrs: Laboratory Results - last 24 hr 11/21/20 11/21/20 11/21/20 Range/Units 16:03 16:03 16:03 WBC 8.62 (4.0-11.0) K/uL RBC 5.34 (4.50-5.90) M/uL Hgb 16.5 (13.0-17.0) g/dL Hct 50.2 H (38.0-50.0) % MCV 94.0 (80.0-98.0) fL MCH 30.9 (27.0-32.0) pg MCHC 32.9 (31.0-37.0) g/dL RDW Std Deviation 49.6 (28.0-62.0) fl RDW Coeff of Negro 15 (11.0-15.0) % Plt Count 190 (150-400) K/uL MPV 10.70 (7.40-12.00) fL Neut % (Auto) 56.4 (48.0-80.0) % Lymph % (Auto) 24.8 (16.0-40.0) % Mccormick % (Auto) 15.1 H (0.0-15.0) % Eos % (Auto) 2.8 (0.0-7.0) % Baso % (Auto) 0.9 (0.0-1.5) % Neut # (Auto) 4.9 (1.4-5.7) K/uL Lymph # (Auto) 2.1 (0.6-2.4) K/uL Mccormick # (Auto) 1.3 H (0.0-0.8) K/uL Eos # (Auto) 0.2 (0.0-0.7) K/uL Baso # (Auto) 0.1 (0.0-0.1) K/uL Nucleated RBC % 0.0 /100WBC Nucleated RBCs # 0 K/uL INR 1.04 APTT 25.2 (18.6-31.3) SEC Lactate (0.20-2.00) mmol/L Sodium (136-148) mmol/L Potassium (3.5-5.1) mmol/L Chloride (98-107) mmol/L Carbon Dioxide (21.0-32.0) mmol/L BUN (7.0-18.0) mg/dL Creatinine (0.8-1.3) mg/dL Est Cr Clr Drug Dosing mL/min Estimated GFR (MDRD) ml/min Glucose (74-106) mg/dL Calcium (8.5-10.1) mg/dL Magnesium (1.8-2.4) mg/dL Total Bilirubin (0.2-1.0) mg/dL AST (15-37) IU/L ALT (14-63) IU/L Alkaline Phosphatase (46-116) U/L Troponin I (0.000-0.056) ng/mL B-Natriuretic Peptide 496 H (<100) PG/ML Total Protein (6.4-8.2) g/dL Albumin (3.4-5.0) g/dL Globulin (2.6-4.0) g/dL Albumin/Globulin Ratio (0.9-1.6) TSH 3rd Generation (0.36-3.74) uIU/mL SARS-CoV-2 RNA (TARAS) (NEGATIVE) 11/21/20 11/21/20 11/21/20 Range/Units 16:03 16:42 16:43 WBC (4.0-11.0) K/uL RBC (4.50-5.90) M/uL Hgb (13.0-17.0) g/dL Hct (38.0-50.0) % MCV (80.0-98.0) fL MCH (27.0-32.0) pg MCHC (31.0-37.0) g/dL RDW Std Deviation (28.0-62.0) fl RDW Coeff of Negro (11.0-15.0) % Plt Count (150-400) K/uL MPV (7.40-12.00) fL Neut % (Auto) (48.0-80.0) % Lymph % (Auto) (16.0-40.0) % Mccormick % (Auto) (0.0-15.0) % Eos % (Auto) (0.0-7.0) % Baso % (Auto) (0.0-1.5) % Neut # (Auto) (1.4-5.7) K/uL Lymph # (Auto) (0.6-2.4) K/uL Mccormick # (Auto) (0.0-0.8) K/uL Eos # (Auto) (0.0-0.7) K/uL Baso # (Auto) (0.0-0.1) K/uL Nucleated RBC % /100WBC Nucleated RBCs # K/uL INR APTT (18.6-31.3) SEC Lactate 3.1 H* (0.20-2.00) mmol/L Sodium 141 (136-148) mmol/L Potassium 4.1 (3.5-5.1) mmol/L Chloride 101 (98-107) mmol/L Carbon Dioxide 27.1 (21.0-32.0) mmol/L BUN 22 H (7.0-18.0) mg/dL Creatinine 1.0 (0.8-1.3) mg/dL Est Cr Clr Drug Dosing 66.10 mL/min Estimated GFR (MDRD) > 60.0 ml/min Glucose 130 H (74-106) mg/dL Calcium 9.4 (8.5-10.1) mg/dL Magnesium 1.5 L (1.8-2.4) mg/dL Total Bilirubin 0.8 (0.2-1.0) mg/dL AST 55 H (15-37) IU/L ALT 71 H (14-63) IU/L Alkaline Phosphatase 115 (46-116) U/L Troponin I < 0.050 (0.000-0.056) ng/mL B-Natriuretic Peptide (<100) PG/ML Total Protein 6.9 (6.4-8.2) g/dL Albumin 3.1 L (3.4-5.0) g/dL Globulin 3.8 (2.6-4.0) g/dL Albumin/Globulin Ratio 0.8 L (0.9-1.6) TSH 3rd Generation 3.94 H (0.36-3.74) uIU/mL SARS-CoV-2 RNA (TARAS) (NEGATIVE) 11/21/20 11/21/20 Range/Units 17:00 19:35 WBC (4.0-11.0) K/uL RBC (4.50-5.90) M/uL Hgb (13.0-17.0) g/dL Hct (38.0-50.0) % MCV (80.0-98.0) fL MCH (27.0-32.0) pg MCHC (31.0-37.0) g/dL RDW Std Deviation (28.0-62.0) fl RDW Coeff of Negro (11.0-15.0) % Plt Count (150-400) K/uL MPV (7.40-12.00) fL Neut % (Auto) (48.0-80.0) % Lymph % (Auto) (16.0-40.0) % Mccormick % (Auto) (0.0-15.0) % Eos % (Auto) (0.0-7.0) % Baso % (Auto) (0.0-1.5) % Neut # (Auto) (1.4-5.7) K/uL Lymph # (Auto) (0.6-2.4) K/uL Mccormick # (Auto) (0.0-0.8) K/uL Eos # (Auto) (0.0-0.7) K/uL Baso # (Auto) (0.0-0.1) K/uL Nucleated RBC % /100WBC Nucleated RBCs # K/uL INR APTT (18.6-31.3) SEC Lactate 1.5 (0.20-2.00) mmol/L Sodium (136-148) mmol/L Potassium (3.5-5.1) mmol/L Chloride (98-107) mmol/L Carbon Dioxide (21.0-32.0) mmol/L BUN (7.0-18.0) mg/dL Creatinine (0.8-1.3) mg/dL Est Cr Clr Drug Dosing mL/min Estimated GFR (MDRD) ml/min Glucose (74-106) mg/dL Calcium (8.5-10.1) mg/dL Magnesium (1.8-2.4) mg/dL Total Bilirubin (0.2-1.0) mg/dL AST (15-37) IU/L ALT (14-63) IU/L Alkaline Phosphatase (46-116) U/L Troponin I (0.000-0.056) ng/mL B-Natriuretic Peptide (<100) PG/ML Total Protein (6.4-8.2) g/dL Albumin (3.4-5.0) g/dL Globulin (2.6-4.0) g/dL Albumin/Globulin Ratio (0.9-1.6) TSH 3rd Generation (0.36-3.74) uIU/mL SARS-CoV-2 RNA (TARAS) NEGATIVE (NEGATIVE) Result Diagrams: 11/21/20 16:03 11/21/20 16:42 [place] Results Last 24 hrs: Microbiology 11/21/20 20:53 Anaerobic Blood Culture - Final Blood - Venous Sepsis Event Note - Focused Exam Vital Signs: Vital Signs Temp Pulse Resp BP Pulse Ox 11/21/20 19:37 67 18 108/84 96 11/21/20 18:23 95 17 93/66 98 11/21/20 17:42 101 H 16 96/55 L 95 11/21/20 17:22 96 17 108/78 94 L 11/21/20 17:02 100 16 102/67 94 L 11/21/20 16:50 105 H 11/21/20 16:45 137 H 16 101/82 96 11/21/20 16:39 135 H 17 132/69 96 11/21/20 15:55 36.6 C 131 H 22 H 132/92 H 96 Orders Last 24hrs: Active Orders 24 hr Category Date Time Status Admission Status [Patient Status] [ADT] Routine ADT 11/21/20 19:13 Active Antiembolic Devices [RC] PER UNIT ROUTINE Care 11/21/20 19:39 Active Blood Glucose Check, Bedside [RC] TIDMEALS Care 11/21/20 19:36 Active Height and Weight [RC] DAILY Care 11/21/20 19:36 Active Oxygen Therapy [RC] PRN Care 11/21/20 19:36 Active Pulse Oximetry [RC] ASDIRECTED Care 11/21/20 16:14 Active RT Aerosol Therapy [RC] ASDIRECTED Care 11/21/20 19:39 Active Up ad Alize [RC] ASDIRECTED Care 11/21/20 19:36 Active VTE/DVT Education [RC] PER UNIT ROUTINE Care 11/21/20 19:36 Active Vital Signs [RC] Q1H Care 11/21/20 19:36 Active Respiratory Care Assess and Treatment [CONS] Routine Cons 11/21/20 19:36 Active 2 Gram Sodium Diet [DIET] Diet 11/21/20 Breakfast Active Fluid Restriction [DIET] Diet 11/22/20 Breakfast Active Heart Healthy Diet [DIET] Diet 11/22/20 Breakfast Active CBC WITH AUTO DIFF [HEME] AM Lab 11/22/20 05:11 Ordered CBC WITH AUTO DIFF [HEME] AM Lab 11/23/20 05:11 Ordered CBC WITH AUTO DIFF [HEME] AM Lab 11/24/20 05:11 Ordered COMPREHENSIVE METABOLIC PN,CMP [CHEM] AM Lab 11/22/20 05:11 Ordered COMPREHENSIVE METABOLIC PN,CMP [CHEM] AM Lab 11/23/20 05:11 Ordered COMPREHENSIVE METABOLIC PN,CMP [CHEM] AM Lab 11/24/20 05:11 Ordered CULTURE BLOOD [BC] Stat Lab 11/21/20 20:53 Results CULTURE BLOOD [BC] Stat Lab 11/21/20 21:05 Received CULTURE SPUTUM + SMEAR [RM] Stat Lab 11/21/20 20:05 Ordered MAGNESIUM [CHEM] AM Lab 11/22/20 05:11 Ordered MAGNESIUM [CHEM] AM Lab 11/23/20 05:11 Ordered T3 FREE [CHEM] AM Lab 11/22/20 05:11 Ordered UA RFX CHAPINCITO AND CULT IF INDIC [URIN] Stat Lab 11/21/20 18:37 Ordered Acetaminophen [TylenoL] Med 11/21/20 19:36 Active 650 mg PO Q4H PRN Albuterol [Proventil Neb Soln] Med 11/21/20 19:36 Active 2.5 mg NEB Q2H PRN Amiodarone In Dextrose,Iso-Osm [Nexterone in Dextrose Med 11/21/20 20:00 Active 360 MG/200 ML] 360 mg in 200 ml IV STAT Dextrose 50% in Water Med 11/21/20 20:31 Active 50 ml IVPUSH ASDIRECTED PRN Enoxaparin [Lovenox] Med 11/21/20 20:15 Active 80 mg SUBCUT Q12H Glucagon,Human Recombinant [GlucaGen] Med 11/21/20 20:24 Active 1 mg IM ASDIRECTED PRN Insulin Aspart [NovoLOG] Med 11/22/20 07:30 Active See Protocol SUBCUT TIDAC Ondansetron [Zofran ODT] Med 11/21/20 19:36 Active 4 mg PO Q4H PRN Pantoprazole [ProTONIX IV] Med 11/21/20 21:00 Active 40 mg IVPUSH Q12HR Sodium Chloride 0.9% [Saline Flush] Med 11/21/20 16:14 Active 10 ml FLUSH ASDIRECTED PRN Sodium Chloride 0.9% [Saline Flush] Med 11/21/20 16:14 Active 2.5 ml FLUSH ASDIRECTED PRN cefTRIAXone [Rocephin in Dextrose,Iso-Osm 1 GM/50 ML] Med 11/21/20 21:30 Active 50 ml IV Q24H Blood Culture x2 Reflex Set [OM.PC] Stat Oth 11/21/20 20:04 Ordered Saline Lock Insert [OM.PC] Stat Oth 11/21/20 16:14 Ordered Sequential Compression Device [OM.PC] Per Unit Routine Oth 11/21/20 19:37 Ordered Resuscitation Status Routine Resus Stat 11/21/20 19:36 Ordered Medication Orders Acetaminophen (Tylenol) 650 mg PO Q4H PRN PRN Reason: Pain (Mild 1-3)/fever Albuterol (Proventil Neb Soln) 2.5 mg NEB Q2H PRN PRN Reason: Shortness Of Breath/wheezing Dextrose/Water (Dextrose 50% In Water) 50 ml IVPUSH ASDIRECTED PRN PRN Reason: Hypoglycemia Enoxaparin Sodium (Lovenox) 80 mg SUBCUT Q12H [place] Last Admin: 11/21/20 21:03 Dose: 80 mg Documented by: MINGO Glucagon (Glucagen) 1 mg IM ASDIRECTED PRN PRN Reason: Hypoglycemia Amiodarone HCl/Dextrose (Nexterone In Dextrose 360 Mg/200 Ml) 360 mg in 200 mls @ 33.333 mls/hr IV STAT [place] Last Admin: 11/21/20 20:48 Dose: 1 mg/min, 33.333 mls/hr Documented by: MINGO Ceftriaxone Sodium/Dextrose (Rocephin In Dextrose,Iso-Osm 1 Gm/50 Ml) 50 mls @ 100 mls/hr IV Q24H [facility] Last Admin: 11/21/20 21:42 Dose: Not Given Documented by: MINGO Insulin Aspart (Novolog) 0 unit SUBCUT TIDAC [facility]; Protocol Ondansetron HCl (Zofran Odt) 4 mg PO Q4H PRN PRN Reason: nausea, able to take PO Pantoprazole Sodium (Protonix Iv) 40 mg IVPUSH Q12HR [place] Last Admin: 11/21/20 21:09 Dose: 40 mg Documented by: MINGO Sodium Chloride (Saline Flush) 10 ml FLUSH ASDIRECTED PRN PRN Reason: Keep Vein Open Last Admin: 11/21/20 16:37 Dose: 10 ml Documented by: [id number] Sodium Chloride (Saline Flush) 2.5 ml FLUSH ASDIRECTED PRN PRN Reason: Keep Vein Open Last Admin: 11/21/20 16:37 Dose: 2.5 ml Documented by: STANLEY - Free Text/Narrative Note: I have seen and examined the patient. I have discussed findings and treatment plan with the resident. I agree with the assessment and plan as outlined in the following note.
[2020-11-21] MEDS ORDERED: Acetaminophen 325 MG Tab PO PRN (19:36)
[2020-11-21] MEDS ORDERED: Ondansetron 4 MG Tab.DIS PO PRN (19:36)
--- NOTE | 2020-11-21 19:58 | PN ---
THC Physician - Brief Progress [id number]/25/2021 19:44[facility] Che Cooley, MELISSA - E[facility]RA[facility] (JOHN) - [facility] ICUOMA PETTYDate of Service 11/21/2020 19:44HPI/Linda nts of Note eICU admission [id number]-rott-wry male with past history significant for A. fib, CHF with EF 25%, HTN and DM 2 who presented to hospital with shortness of breath. Patient mentions he has had s hortness of breath over the last 3 months but has significantly worsened over the last 3 days. He do es endorse having worsening lower extremity edema and orthopnea. On arrival to the ED patient was no gwen to have heart rate in the 130s with otherwise stable vitals. Initial lab work-up did reveal elev ated BNP at 496, lactate 3.1, magnesium 1.5 and mild transaminitis. Patient was initiated on Cardize m gtt. and admitted to the ICU for closer monitoring.Patient seen on camera, currently able to conver se in complete sentences without acute distress and currently is on nasal cannula.Vital signs reviewe d. HR 123, SPO2 99%, RR 16Labs/EMR reviewedA. fib with RVR-Recommend continuing Cardizem gtt. and in itiating p.o. AV mara christianne once heart rate is controlled less than 100.-Anticoagulation-will defe r to primary team as patient has had prior discussions in regards to this.-Recommend aggressively rep lacing electrolytes to keep MG > 2 and K > 4-If patient has not had 2D echo recently recommend repeat 2D echo at this time.CHF exacerbation-We will likely need diuresis once heart rate improves as does blood pressure and electrolytes have been replaced.-Strict I's and O's along with daily weights.-Jacob mmend fluid restriction to 1 L daily.Thank you for allowing us to participate in the care of this pat ient.Interventions Major-Arrhythmia - evaluation and management, Other: CHF
[2020-11-21] MEDS ORDERED: Sodium Chloride 0.9% 0 ML ONE (20:04)
[2020-11-21] MEDS ORDERED: Azithromycin 250 MG Tab PO ONE (20:05)
[2020-11-21] MEDS ORDERED: Furosemide 40 MG/4 ML VIAL IVPUSH ONE (20:08)
[2020-11-21] MEDS ORDERED: Amiodarone 150 MG in Dextrose 5% in Water 100 ML IV ONE ×2 (20:15)
[2020-11-21] MEDS ORDERED: cefTRIAXone 1 GM in Sodium Chloride 0.9% 50 ML IV SCH (20:15)
[2020-11-21] MEDS ORDERED: Glucagon,Human Recombinant 1 MG Vial IM PRN (20:24)
[2020-11-21] MEDS ORDERED: 50% Dextrose in Water 50 ML Syringe IV PRN (20:24)
[2020-11-21] MEDS ORDERED: 50% Dextrose in Water 50 ML Syringe IVPUSH PRN (20:31)
[2020-11-21] MEDS: Enoxaparin 100 MG/1 ML Syringe SUBCUT SCH (21:03)
[2020-11-21] MEDS: Pantoprazole 40 MG Vial IVPUSH SCH (21:09)
--- NOTE | 2020-11-22 00:12 | PN ---
THC Physician - Brief Progress [id number]/25/2021 23:52[facility] koryChe, MELISSA - E[facility]RAIM (JOHN) - [facility] ICUBOATRKENISHA OMA L.Date of Service 11/21/2020 23:52HPI/Linda nts of Note 70 year old male with CHF and atrial fibrillation on amiodarone infusionNoted to have dys pnea and seems to occur intermittentlyspo2 95% on oxygen NC2L/minchest xray right lower lobe atelecta sis versus consolidation?Chyne Noble respiration ?Paroxysmal nocturnal dyspneaplan:ABG to assess fo r hypocapniaattempt CPAP 5-10 cm of H20 with Fio2 40%Interventions Intermediate-Respiratory distress - evaluation and management
[2020-11-22] MEDS: Albuterol 0.083% 2.5 MG/3 ML Neb Soln NEB PRN ×2 (04:25→15:23)
[2020-11-22] MEDS ORDERED: Insulin Regular, Human 100 Units/ML 10 ML Vial SUBCUT ONE (06:03)
[2020-11-22] MEDS ORDERED: 50% Dextrose in Water 50 ML Syringe IV PRN (06:03)
--- NOTE | 2020-11-22 06:10 | PN ---
THC Physician - Brief Progress [id number]/26/2021 06:08[facility] kory Reinbeck, MELISSA - E[facility]RAIM (JOHN) - OMA WILLISDate of Service 11/22/2020 06:08HPI/Linda nts of Note Glucose 259Insulin regular 3 units SQ nowInterventions Major-Hyperglycemia - active titra tion of insulin therapy
[2020-11-22 08:15] LABS: CARBON DIOXIDE,CO2 27.3 mmol/L (21.0-32.0); POTASSIUM,K 4.2 mmol/L (3.5-5.1)
[2020-11-22] MEDS: Insulin Aspart 100 Units/ML 3 ML Pen SUBCUT SCH ×3 (08:32→18:02)
[2020-11-22] MEDS: Enoxaparin 100 MG/1 ML Syringe SUBCUT SCH ×2 (08:35→21:11)
[2020-11-22] MEDS: Pantoprazole 40 MG Vial IVPUSH SCH ×2 (08:36→21:08)
[2020-11-22] MEDS ORDERED: Metoprolol Tartrate 5 MG in Sodium Chloride 0.9% 50 ML IV ONE ×2 (11:30→18:47)
--- NOTE | 2020-11-22 11:33 | PN ---
THC Physician - Brief Progress [id number]/26/2021 11:32[facility] Che Cooley, [place] - E[facility]RAIM (JOHN) - E[facility]RAIM ICUBOATRKENISHA OMA L.Date of Service 11/22/2020 11:32HPI/Linda nts of Note eICU Update NoteDiscussed case with bedside.Briefly patient has a history of HFrEF, prese nted with afib RVR.He was started on an amiodarone loading dose for rate control.Overnight HR has bee n 110-130s. At this point we suspect afib RVR to be related to a fluid overloaded state.For rate cont rol - we will trial a dose of metoprolol 5mg IV - if this is hemodynamically tolerated, we can start oral metoprolol.Additionally, we will attempt diuresis with 80mg of furosemide IV.Interventions Major -Arrhythmia - evaluation and management 1 1:32
--- NOTE | 2020-11-22 11:48 | PCM.PN ---
- General Info Date of Service: 11/22/20 - Review of Systems Systems Review Comment:: patient reports feeling ill, no pain, short of breath with active and has episodes lasting few seconds to minutes where he has palpitations and struggles to catch his breath. He denies any fevers or cough. - Patient Data Vitals - Most Recent: Last Vital Signs Temp 36.4 C 11/22/20 04:00 Pulse 67 11/21/20 19:37 Resp 18 11/22/20 06:00 BP 121/93 H 11/22/20 06:00 Pulse Ox 98 11/22/20 06:00 Weight - Most Recent: 86.5 kg I&O - Last 24 Hours: Intake & Output 11/21/20 11/22/20 11/22/20 22:59 06:59 14:59 Intake Total 90 1146 Output Total 650 Balance 90 496 Lab Results Last 24 Hours: Laboratory Results - last 24 hr 11/21/20 11/21/20 11/21/20 Range/Units 16:03 16:03 16:03 WBC 8.62 (4.0-11.0) K/uL RBC 5.34 (4.50-5.90) M/uL Hgb 16.5 (13.0-17.0) g/dL Hct 50.2 H (38.0-50.0) % MCV 94.0 (80.0-98.0) fL MCH 30.9 (27.0-32.0) pg MCHC 32.9 (31.0-37.0) g/dL RDW Std Deviation 49.6 (28.0-62.0) fl RDW Coeff of Negro 15 (11.0-15.0) % Plt Count 190 (150-400) K/uL MPV 10.70 (7.40-12.00) fL Neut % (Auto) 56.4 (48.0-80.0) % Lymph % (Auto) 24.8 (16.0-40.0) % Eddy % (Auto) 15.1 H (0.0-15.0) % Eos % (Auto) 2.8 (0.0-7.0) % Baso % (Auto) 0.9 (0.0-1.5) % Neut # (Auto) 4.9 (1.4-5.7) K/uL Lymph # (Auto) 2.1 (0.6-2.4) K/uL Eddy # (Auto) 1.3 H (0.0-0.8) K/uL Eos # (Auto) 0.2 (0.0-0.7) K/uL Baso # (Auto) 0.1 (0.0-0.1) K/uL Nucleated RBC % 0.0 /100WBC Nucleated RBCs # 0 K/uL INR 1.04 APTT 25.2 (18.6-31.3) SEC ABG pH (7.35-7.45) ABG pCO2 (35-45) mmHG ABG pO2 (75-100) mmHG ABG HCO3 (22-26) mEq/L ABG Total CO2 ABG Base Excess (-2.0-2.0) Lactate (0.20-2.00) mmol/L Sodium (136-148) mmol/L Potassium (3.5-5.1) mmol/L Chloride (98-107) mmol/L Carbon Dioxide (21.0-32.0) mmol/L BUN (7.0-18.0) mg/dL Creatinine (0.8-1.3) mg/dL Est Cr Clr Drug Dosing mL/min Estimated GFR (MDRD) ml/min Glucose (74-106) mg/dL POC Glucose (60-110) mg/dL Calcium (8.5-10.1) mg/dL Magnesium (1.8-2.4) mg/dL Total Bilirubin (0.2-1.0) mg/dL AST (15-37) IU/L ALT (14-63) IU/L Alkaline Phosphatase (46-116) U/L Troponin I (0.000-0.056) ng/mL B-Natriuretic Peptide 496 H (<100) PG/ML Total Protein (6.4-8.2) g/dL Albumin (3.4-5.0) g/dL Globulin (2.6-4.0) g/dL Albumin/Globulin Ratio (0.9-1.6) Free T3 (2.18-3.98) pg/mL TSH 3rd Generation (0.36-3.74) uIU/mL Urine Color Urine Appearance Urine pH (5.0-8.0) Ur Specific [place] (1.001-1.035) Urine Protein (NEGATIVE) mg/dL Urine Glucose (UA) (NEGATIVE) mg/dL Urine Ketones (NEGATIVE) mg/dL Urine Occult Blood (NEGATIVE) Urine Nitrite (NEGATIVE) Urine Bilirubin (NEGATIVE) Urine Urobilinogen (<2.0) EU/dL Ur Leukocyte Esterase (NEGATIVE) SARS-CoV-2 RNA (TARAS) (NEGATIVE) 11/21/20 11/21/20 11/21/20 Range/Units 16:03 16:42 16:43 WBC (4.0-11.0) K/uL RBC (4.50-5.90) M/uL Hgb (13.0-17.0) g/dL Hct (38.0-50.0) % MCV (80.0-98.0) fL MCH (27.0-32.0) pg MCHC (31.0-37.0) g/dL RDW Std Deviation (28.0-62.0) fl RDW Coeff of Negro (11.0-15.0) % Plt Count (150-400) K/uL MPV (7.40-12.00) fL Neut % (Auto) (48.0-80.0) % Lymph % (Auto) (16.0-40.0) % Eddy % (Auto) (0.0-15.0) % Eos % (Auto) (0.0-7.0) % Baso % (Auto) (0.0-1.5) % Neut # (Auto) (1.4-5.7) K/uL Lymph # (Auto) (0.6-2.4) K/uL Eddy # (Auto) (0.0-0.8) K/uL Eos # (Auto) (0.0-0.7) K/uL Baso # (Auto) (0.0-0.1) K/uL Nucleated RBC % /100WBC Nucleated RBCs # K/uL INR APTT (18.6-31.3) SEC ABG pH (7.35-7.45) ABG pCO2 (35-45) mmHG ABG pO2 (75-100) mmHG ABG HCO3 (22-26) mEq/L ABG Total CO2 ABG Base Excess (-2.0-2.0) Lactate 3.1 H* (0.20-2.00) mmol/L Sodium 141 (136-148) mmol/L Potassium 4.1 (3.5-5.1) mmol/L Chloride 101 (98-107) mmol/L Carbon Dioxide 27.1 (21.0-32.0) mmol/L BUN 22 H (7.0-18.0) mg/dL Creatinine 1.0 (0.8-1.3) mg/dL Est Cr Clr Drug Dosing 66.10 mL/min Estimated GFR (MDRD) > 60.0 ml/min Glucose 130 H (74-106) mg/dL POC Glucose (60-110) mg/dL Calcium 9.4 (8.5-10.1) mg/dL Magnesium 1.5 L (1.8-2.4) mg/dL Total Bilirubin 0.8 (0.2-1.0) mg/dL AST 55 H (15-37) IU/L ALT 71 H (14-63) IU/L Alkaline Phosphatase 115 (46-116) U/L Troponin I < 0.050 (0.000-0.056) ng/mL B-Natriuretic Peptide (<100) PG/ML Total Protein 6.9 (6.4-8.2) g/dL Albumin 3.1 L (3.4-5.0) g/dL Globulin 3.8 (2.6-4.0) g/dL Albumin/Globulin Ratio 0.8 L (0.9-1.6) Free T3 (2.18-3.98) pg/mL TSH 3rd Generation 3.94 H (0.36-3.74) uIU/mL Urine Color Urine Appearance Urine pH (5.0-8.0) Ur Specific [place] (1.001-1.035) Urine Protein (NEGATIVE) mg/dL Urine Glucose (UA) (NEGATIVE) mg/dL Urine Ketones (NEGATIVE) mg/dL Urine Occult Blood (NEGATIVE) Urine Nitrite (NEGATIVE) Urine Bilirubin (NEGATIVE) Urine Urobilinogen (<2.0) EU/dL Ur Leukocyte Esterase (NEGATIVE) SARS-CoV-2 RNA (TARAS) (NEGATIVE) 11/21/20 11/21/20 11/21/20 Range/Units 17:00 19:35 23:40 WBC (4.0-11.0) K/uL RBC (4.50-5.90) M/uL Hgb (13.0-17.0) g/dL Hct (38.0-50.0) % MCV (80.0-98.0) fL MCH (27.0-32.0) pg MCHC (31.0-37.0) g/dL RDW Std Deviation (28.0-62.0) fl RDW Coeff of Negro (11.0-15.0) % Plt Count (150-400) K/uL MPV (7.40-12.00) fL Neut % (Auto) (48.0-80.0) % Lymph % (Auto) (16.0-40.0) % Eddy % (Auto) (0.0-15.0) % Eos % (Auto) (0.0-7.0) % Baso % (Auto) (0.0-1.5) % Neut # (Auto) (1.4-5.7) K/uL Lymph # (Auto) (0.6-2.4) K/uL Eddy # (Auto) (0.0-0.8) K/uL Eos # (Auto) (0.0-0.7) K/uL Baso # (Auto) (0.0-0.1) K/uL Nucleated RBC % /100WBC Nucleated RBCs # K/uL INR APTT (18.6-31.3) SEC ABG pH (7.35-7.45) ABG pCO2 (35-45) mmHG ABG pO2 (75-100) mmHG ABG HCO3 (22-26) mEq/L ABG Total CO2 ABG Base Excess (-2.0-2.0) Lactate 1.5 (0.20-2.00) mmol/L Sodium (136-148) mmol/L Potassium (3.5-5.1) mmol/L Chloride (98-107) mmol/L Carbon Dioxide (21.0-32.0) mmol/L BUN (7.0-18.0) mg/dL Creatinine (0.8-1.3) mg/dL Est Cr Clr Drug Dosing mL/min Estimated GFR (MDRD) ml/min Glucose (74-106) mg/dL POC Glucose (60-110) mg/dL Calcium (8.5-10.1) mg/dL Magnesium (1.8-2.4) mg/dL Total Bilirubin (0.2-1.0) mg/dL AST (15-37) IU/L ALT (14-63) IU/L Alkaline Phosphatase (46-116) U/L Troponin I (0.000-0.056) ng/mL B-Natriuretic Peptide (<100) PG/ML Total Protein (6.4-8.2) g/dL Albumin (3.4-5.0) g/dL Globulin (2.6-4.0) g/dL Albumin/Globulin Ratio (0.9-1.6) Free T3 (2.18-3.98) pg/mL TSH 3rd Generation (0.36-3.74) uIU/mL Urine Color YELLOW Urine Appearance CLEAR Urine pH 6.0 (5.0-8.0) Ur Specific [place] 1.020 (1.001-1.035) Urine Protein NEGATIVE (NEGATIVE) mg/dL Urine Glucose (UA) NEGATIVE (NEGATIVE) mg/dL Urine Ketones NEGATIVE (NEGATIVE) mg/dL Urine Occult Blood NEGATIVE (NEGATIVE) Urine Nitrite NEGATIVE (NEGATIVE) Urine Bilirubin NEGATIVE (NEGATIVE) Urine Urobilinogen 0.2 (<2.0) EU/dL Ur Leukocyte Esterase NEGATIVE (NEGATIVE) SARS-CoV-2 RNA (TARAS) NEGATIVE (NEGATIVE) 11/22/20 11/22/20 11/22/20 Range/Units 00:40 05:46 07:14 WBC (4.0-11.0) K/uL RBC (4.50-5.90) M/uL Hgb (13.0-17.0) g/dL Hct (38.0-50.0) % MCV (80.0-98.0) fL MCH (27.0-32.0) pg MCHC (31.0-37.0) g/dL RDW Std Deviation (28.0-62.0) fl RDW Coeff of Negro (11.0-15.0) % Plt Count (150-400) K/uL MPV (7.40-12.00) fL Neut % (Auto) (48.0-80.0) % Lymph % (Auto) (16.0-40.0) % Eddy % (Auto) (0.0-15.0) % Eos % (Auto) (0.0-7.0) % Baso % (Auto) (0.0-1.5) % Neut # (Auto) (1.4-5.7) K/uL Lymph # (Auto) (0.6-2.4) K/uL Eddy # (Auto) (0.0-0.8) K/uL Eos # (Auto) (0.0-0.7) K/uL Baso # (Auto) (0.0-0.1) K/uL Nucleated RBC % /100WBC Nucleated RBCs # K/uL INR APTT (18.6-31.3) SEC ABG pH 7.532 H (7.35-7.45) ABG pCO2 29 L (35-45) mmHG ABG pO2 94 (75-100) mmHG ABG HCO3 24 (22-26) mEq/L ABG Total CO2 20.7 ABG Base Excess 2.8 H (-2.0-2.0) Lactate (0.20-2.00) mmol/L Sodium (136-148) mmol/L Potassium (3.5-5.1) mmol/L Chloride (98-107) mmol/L Carbon Dioxide (21.0-32.0) mmol/L BUN (7.0-18.0) mg/dL Creatinine (0.8-1.3) mg/dL Est Cr Clr Drug Dosing mL/min Estimated GFR (MDRD) ml/min Glucose (74-106) mg/dL POC Glucose 259 H 218 H (60-110) mg/dL Calcium (8.5-10.1) mg/dL Magnesium (1.8-2.4) mg/dL Total Bilirubin (0.2-1.0) mg/dL AST (15-37) IU/L ALT (14-63) IU/L Alkaline Phosphatase (46-116) U/L Troponin I (0.000-0.056) ng/mL B-Natriuretic Peptide (<100) PG/ML Total Protein (6.4-8.2) g/dL Albumin (3.4-5.0) g/dL Globulin (2.6-4.0) g/dL Albumin/Globulin Ratio (0.9-1.6) Free T3 (2.18-3.98) pg/mL TSH 3rd Generation (0.36-3.74) uIU/mL Urine Color Urine Appearance Urine pH (5.0-8.0) Ur Specific [place] (1.001-1.035) Urine Protein (NEGATIVE) mg/dL Urine Glucose (UA) (NEGATIVE) mg/dL Urine Ketones (NEGATIVE) mg/dL Urine Occult Blood (NEGATIVE) Urine Nitrite (NEGATIVE) Urine Bilirubin (NEGATIVE) Urine Urobilinogen (<2.0) EU/dL Ur Leukocyte Esterase (NEGATIVE) SARS-CoV-2 RNA (TARAS) (NEGATIVE) 11/22/20 11/22/20 11/22/20 Range/Units 07:15 07:15 11:29 WBC 9.52 (4.0-11.0) K/uL RBC 5.05 (4.50-5.90) M/uL Hgb 15.6 (13.0-17.0) g/dL Hct 46.6 (38.0-50.0) % MCV 92.3 (80.0-98.0) fL MCH 30.9 (27.0-32.0) pg MCHC 33.5 (31.0-37.0) g/dL RDW Std Deviation 48.0 (28.0-62.0) fl RDW Coeff of Negro 14 (11.0-15.0) % Plt Count 181 (150-400) K/uL MPV 10.70 (7.40-12.00) fL Neut % (Auto) 62.1 (48.0-80.0) % Lymph % (Auto) 20.9 (16.0-40.0) % Eddy % (Auto) 16.0 H (0.0-15.0) % Eos % (Auto) 0.5 (0.0-7.0) % Baso % (Auto) 0.5 (0.0-1.5) % Neut # (Auto) 5.9 H (1.4-5.7) K/uL Lymph # (Auto) 2.0 (0.6-2.4) K/uL Eddy # (Auto) 1.5 H (0.0-0.8) K/uL Eos # (Auto) 0.1 (0.0-0.7) K/uL Baso # (Auto) 0.1 (0.0-0.1) K/uL Nucleated RBC % 0.0 /100WBC Nucleated RBCs # 0 K/uL INR APTT (18.6-31.3) SEC ABG pH (7.35-7.45) ABG pCO2 (35-45) mmHG ABG pO2 (75-100) mmHG ABG HCO3 (22-26) mEq/L ABG Total CO2 ABG Base Excess (-2.0-2.0) Lactate (0.20-2.00) mmol/L Sodium 136 (136-148) mmol/L Potassium 4.2 (3.5-5.1) mmol/L Chloride 97 L (98-107) mmol/L Carbon Dioxide 27.3 (21.0-32.0) mmol/L BUN 25 H (7.0-18.0) mg/dL Creatinine 1.4 H (0.8-1.3) mg/dL Est Cr Clr Drug Dosing 47.21 mL/min Estimated GFR (MDRD) 50.4 ml/min Glucose 217 H (74-106) mg/dL POC Glucose 166 H (60-110) mg/dL Calcium 9.1 (8.5-10.1) mg/dL Magnesium 1.9 (1.8-2.4) mg/dL Total Bilirubin 0.9 (0.2-1.0) mg/dL AST 71 H (15-37) IU/L ALT 82 H (14-63) IU/L Alkaline Phosphatase 95 (46-116) U/L Troponin I (0.000-0.056) ng/mL B-Natriuretic Peptide (<100) PG/ML Total Protein 6.9 (6.4-8.2) g/dL Albumin 3.3 L (3.4-5.0) g/dL Globulin 3.6 (2.6-4.0) g/dL Albumin/Globulin Ratio 0.9 (0.9-1.6) Free T3 2.34 (2.18-3.98) pg/mL TSH 3rd Generation (0.36-3.74) uIU/mL Urine Color Urine Appearance Urine pH (5.0-8.0) Ur Specific [place] (1.001-1.035) Urine Protein (NEGATIVE) mg/dL Urine Glucose (UA) (NEGATIVE) mg/dL Urine Ketones (NEGATIVE) mg/dL Urine Occult Blood (NEGATIVE) Urine Nitrite (NEGATIVE) Urine Bilirubin (NEGATIVE) Urine Urobilinogen (<2.0) EU/dL Ur Leukocyte Esterase (NEGATIVE) SARS-CoV-2 RNA (TARAS) (NEGATIVE) [place] Results Last 24 Hours: Microbiology 11/21/20 09:56 Gram Stain - Final Sputum - Expectorated 11/21/20 20:53 Anaerobic Blood Culture - Final Blood - Venous Med Orders - Current: Current Medications Acetaminophen (Tylenol) 650 mg PO Q4H PRN PRN Reason: Pain (Mild 1-3)/fever Albuterol (Proventil Neb Soln) 2.5 mg NEB Q2H PRN PRN Reason: Shortness Of Breath/wheezing Last Admin: 11/22/20 04:25 Dose: 2.5 mg Documented by: Dextrose/Water (Dextrose 50% In Water) 50 ml IVPUSH ASDIRECTED PRN PRN Reason: Hypoglycemia Dextrose/Water (Dextrose 50% In Water) 50 ml IV ASDIRECTED PRN PRN Reason: Hypoglycemia Enoxaparin Sodium (Lovenox) 80 mg SUBCUT Q12H [facility] Last Admin: 11/22/20 08:35 Dose: 80 mg Documented by: Glucagon (Glucagen) 1 mg IM ASDIRECTED PRN PRN Reason: Hypoglycemia Ceftriaxone Sodium/Dextrose (Rocephin In Dextrose,Iso-Osm 1 Gm/50 Ml) 50 mls @ 100 mls/hr IV Q24H [facility] Last Admin: 11/21/20 21:42 Dose: Not Given Documented by: Amiodarone HCl/Dextrose (Nexterone In Dextrose 360 Mg/200 Ml) 360 mg in 200 mls @ 16.667 mls/hr IV ASDIRECTED [facility]; Protocol Stop: 11/23/20 20:51 Last Admin: 11/22/20 02:33 Dose: 0.5 mg/min, 16.667 mls/hr Documented by: Metoprolol Tartrate 5 mg/ (Sodium Chloride) 55 mls @ 100 mls/hr IV ONETIME ONE Stop: 11/22/20 12:02 Insulin Aspart (Novolog) 0 unit SUBCUT TIDAC [facility]; Protocol Last Admin: 11/22/20 11:31 Dose: 1 unit Documented by: Ondansetron HCl (Zofran Odt) 4 mg PO Q4H PRN PRN Reason: nausea, able to take PO Pantoprazole Sodium (Protonix Iv) 40 mg IVPUSH Q12HR [facility] Last Admin: 11/22/20 08:36 Dose: 40 mg Documented by: Sodium Chloride (Saline Flush) 10 ml FLUSH ASDIRECTED PRN PRN Reason: Keep Vein Open Last Admin: 11/21/20 16:37 Dose: 10 ml Documented by: Sodium Chloride (Saline Flush) 2.5 ml FLUSH ASDIRECTED PRN PRN Reason: Keep Vein Open Last Admin: 11/21/20 16:37 Dose: 2.5 ml Documented by: Discontinued Medications Azithromycin (Zithromax) 500 mg PO Q24H ONE Stop: 11/21/20 20:06 Last Admin: 11/21/20 21:03 Dose: 500 mg Documented by: Dextrose/Water (Dextrose 50% In Water) 50 ml IV ASDIRECTED PRN PRN Reason: Hypoglycemia Diltiazem HCl (Diltiazem) 25 mg IVPUSH ONETIME ONE Stop: 11/21/20 16:18 Last Admin: 11/21/20 16:37 Dose: 25 mg Documented by: Furosemide (Lasix) 40 mg IVPUSH NOW ONE Stop: 11/21/20 20:09 Last Admin: 11/21/20 20:57 Dose: 40 mg Documented by: Diltiazem HCl 100 mg/ Sodium (Chloride) 100 mls @ 5 mls/hr IV NOW [facility]; Protocol Last Admin: 11/21/20 16:36 Dose: 5 mg/hr, 5 mls/hr Documented by: Magnesium Sulfate 2 gm/ Premix 50 mls @ 50 mls/hr IV ONETIME ONE Stop: 11/21/20 18:39 Last Admin: 11/21/20 18:03 Dose: 50 mls/hr Documented by: Amiodarone HCl/Dextrose (Nexterone In Dextrose 360 Mg/200 Ml) 360 mg in 200 mls @ 33.333 mls/hr IV STAT [place] Stop: 11/22/20 02:49 Last Admin: 11/21/20 20:48 Dose: 1 mg/min, 33.333 mls/hr Documented by: Sodium Chloride (Normal Saline) Confirm Administered Dose 100 mls @ as directed .ROUTE .STK-MED ONE Stop: 11/21/20 20:05 Last Admin: 11/21/20 20:16 Dose: Not Given Documented by: Ceftriaxone Sodium 1 gm/ (Sodium Chloride) 50 mls @ 100 mls/hr IV Q24H [place] Last Admin: 11/21/20 22:51 Dose: Not Given Documented by: Amiodarone HCl 150 mg/ (Dextrose/Water) 103 mls @ 600 mls/hr IV .BOLUS ONE Stop: 11/21/20 20:25 Last Admin: 11/21/20 20:42 Dose: Not Given Documented by: Amiodarone HCl/Dextrose (Nexterone In Dextrose 150 Mg/100 Ml) Confirm Administered Dose 100 mls @ as directed IV .STK-MED ONE Stop: 11/21/20 20:27 Last Admin: 11/21/20 20:37 Dose: Not Given Documented by: Amiodarone HCl/Dextrose (Nexterone In Dextrose 150 Mg/100 Ml) 100 mls @ 600 mls/hr IV ONETIME ONE Stop: 11/21/20 20:54 Last Admin: 11/21/20 20:37 Dose: 600 mls/hr Documented by: Ceftriaxone Sodium/Dextrose (Rocephin In Dextrose,Iso-Osm 1 Gm/50 Ml) Confirm Administered Dose 50 mls @ as directed .ROUTE .STK-MED ONE Stop: 11/21/20 21:20 Last Admin: 11/21/20 21:22 Dose: 100 mls/hr Documented by: Insulin Human Regular (Novolin R) 3 unit SUBCUT ONETIME ONE; Protocol Stop: 11/22/20 06:04 Last Admin: 11/22/20 06:19 Dose: 3 units Documented by: - Exam General: Alert, Oriented Lungs: Clear to Auscultation, Normal Respiratory Effort Cardiovascular: Regular Rate, Regular Rhythm Extremities: Non-Tender, Pedal Edema (+1) Skin: Warm, Dry, Intact Neurological: No New Focal Deficit Sepsis Event Note - Evaluation Sepsis Screening Result: No Definite Risk - Focused Exam Vital Signs: Vital Signs Temp Resp BP Pulse Ox 11/22/20 06:00 18 121/93 H 98 11/22/20 05:00 28 H 107/80 96 11/22/20 04:00 36.4 C 20 108/68 95 11/22/20 02:59 25 H 119/93 H 97 11/22/20 02:00 25 H 121/80 99 11/22/20 01:00 23 H 122/86 97 11/22/20 00:00 36.4 C 20 116/89 96 - Problem List Review Problem List Initiated/Reviewed/Updated: Yes - My Orders Last 24 Hours: My Active Orders 11/21/20 19:13 Admission Status [Patient Status] [ADT] Routine 11/22/20 11:30 Metoprolol Tartrate [Lopressor] 5 mg Sodium Chloride 0.9% [Normal Saline] 50 ml IV ONETIME 11/22/20 11:41 TROPONIN I [CHEM] Q6H 11/22/20 17:41 TROPONIN I [CHEM] Q6H - Plan Plan:: 70 yo male admitted with CHF exacerbation and a.fib with RVR. A.fib with RVR: on loading dose amiodarone drip, Discussed case with eICU physician and will try a dose of metoprolol IV CHF: if blood pressure remains stable with beta christianne will try higher dose of lasix Continue full dose lovenox
[2020-11-22] MEDS ORDERED: Furosemide 40 MG/4 ML VIAL IVPUSH ONE (13:37)
[2020-11-22] MEDS ORDERED: LORazepam 0.5 MG Tab PO ONE (13:37)
[2020-11-22] MEDS ORDERED: Aspirin 325 MG Tab PO ONE (18:48)
[2020-11-22] MEDS ORDERED: Melatonin 3 MG Tab PO ONE (18:51)
[2020-11-22] MEDS ORDERED: Furosemide 100 MG/10 ML SDV IVPUSH ONE (20:00)
--- NOTE | 2020-11-22 20:05 | PCM.SN.2 ---
- Free Text/Narrative Note: Patient reporting worsening fatigue, does not think he is urinating out much. Patient is negative 140ml. HR better with IV metoprolol, will start po metoprolol. I spoke with Dr. Butt in [place] regarding patient who recommended continuing current pharmacological therapies of slowing heart rate and diuresing patient. Patient will need ischemic work up but it is nonurgent. Will consider transfer if patient deteriorates.
[2020-11-22] MEDS: Metoprolol Tartrate 25 MG Tab PO SCH (20:50)
[2020-11-23] MEDS: Albuterol 0.083% 2.5 MG/3 ML Neb Soln NEB PRN (04:53)
[2020-11-23 07:18] LABS: POTASSIUM,K 5.7 mmol/L (3.5-5.1)
[2020-11-23] MEDS: Insulin Aspart 100 Units/ML 3 ML Pen SUBCUT SCH ×2 (08:32→11:48)
[2020-11-23] MEDS: Enoxaparin 100 MG/1 ML Syringe SUBCUT SCH (08:45)
[2020-11-23] MEDS: Pantoprazole 40 MG Vial IVPUSH SCH (08:48)
[2020-11-23] MEDS: Metoprolol Tartrate 25 MG Tab PO SCH (09:45)
--- NOTE | 2020-11-23 10:21 | PCM.PN ---
- Patient Data Vitals - Most Recent: Last Vital Signs Temp 36.4 C 11/23/20 04:00 Pulse 109 H 11/22/20 19:17 Resp 20 11/23/20 07:00 BP 95/67 11/23/20 07:00 Pulse Ox 98 11/23/20 07:00 Weight - Most Recent: 87.952 kg I&O - Last 24 Hours: Intake & Output 11/22/20 11/23/20 11/23/20 22:59 06:59 14:59 Intake Total 850 850 Output Total 700 400 Balance 150 450 Lab Results Last 24 Hours: Laboratory Results - last 24 hr 11/22/20 11/22/20 11/22/20 Range/Units 11:29 11:50 17:58 WBC (4.0-11.0) K/uL RBC (4.50-5.90) M/uL Hgb (13.0-17.0) g/dL Hct (38.0-50.0) % MCV (80.0-98.0) fL MCH (27.0-32.0) pg MCHC (31.0-37.0) g/dL RDW Std Deviation (28.0-62.0) fl RDW Coeff of Negro (11.0-15.0) % Plt Count (150-400) K/uL MPV (7.40-12.00) fL Neut % (Auto) (48.0-80.0) % Lymph % (Auto) (16.0-40.0) % [place] % (Auto) (0.0-15.0) % Eos % (Auto) (0.0-7.0) % Baso % (Auto) (0.0-1.5) % Neut # (Auto) (1.4-5.7) K/uL Lymph # (Auto) (0.6-2.4) K/uL [place] # (Auto) (0.0-0.8) K/uL Eos # (Auto) (0.0-0.7) K/uL Baso # (Auto) (0.0-0.1) K/uL Nucleated RBC % /100WBC Nucleated RBCs # K/uL Sodium (136-148) mmol/L Potassium (3.5-5.1) mmol/L Chloride (98-107) mmol/L Carbon Dioxide (21.0-32.0) mmol/L BUN (7.0-18.0) mg/dL Creatinine (0.8-1.3) mg/dL Est Cr Clr Drug Dosing mL/min Estimated GFR (MDRD) ml/min Glucose (74-106) mg/dL POC Glucose 166 H 133 H (60-110) mg/dL Calcium (8.5-10.1) mg/dL Magnesium (1.8-2.4) mg/dL Total Bilirubin (0.2-1.0) mg/dL AST (15-37) IU/L ALT (14-63) IU/L Alkaline Phosphatase (46-116) U/L Troponin I < 0.050 (0.000-0.056) ng/mL Total Protein (6.4-8.2) g/dL Albumin (3.4-5.0) g/dL Globulin (2.6-4.0) g/dL Albumin/Globulin Ratio (0.9-1.6) 11/22/20 11/23/20 11/23/20 Range/Units 17:59 02:13 06:17 WBC 16.53 H (4.0-11.0) K/uL RBC 4.87 (4.50-5.90) M/uL Hgb 14.9 (13.0-17.0) g/dL Hct 46.1 (38.0-50.0) % MCV 94.7 (80.0-98.0) fL MCH 30.6 (27.0-32.0) pg MCHC 32.3 (31.0-37.0) g/dL RDW Std Deviation 50.5 (28.0-62.0) fl RDW Coeff of Negro 15 (11.0-15.0) % Plt Count 175 (150-400) K/uL MPV 11.60 (7.40-12.00) fL Neut % (Auto) 79.5 (48.0-80.0) % Lymph % (Auto) 7.1 L (16.0-40.0) % [place] % (Auto) 13.2 (0.0-15.0) % Eos % (Auto) 0.1 (0.0-7.0) % Baso % (Auto) 0.1 (0.0-1.5) % Neut # (Auto) 13.2 H (1.4-5.7) K/uL Lymph # (Auto) 1.2 (0.6-2.4) K/uL [place] # (Auto) 2.2 H (0.0-0.8) K/uL Eos # (Auto) 0.0 (0.0-0.7) K/uL Baso # (Auto) 0.0 (0.0-0.1) K/uL Nucleated RBC % 0.0 /100WBC Nucleated RBCs # 0 K/uL Sodium (136-148) mmol/L Potassium (3.5-5.1) mmol/L Chloride (98-107) mmol/L Carbon Dioxide (21.0-32.0) mmol/L BUN (7.0-18.0) mg/dL Creatinine (0.8-1.3) mg/dL Est Cr Clr Drug Dosing mL/min Estimated GFR (MDRD) ml/min Glucose (74-106) mg/dL POC Glucose (60-110) mg/dL Calcium (8.5-10.1) mg/dL Magnesium (1.8-2.4) mg/dL Total Bilirubin (0.2-1.0) mg/dL AST (15-37) IU/L ALT (14-63) IU/L Alkaline Phosphatase (46-116) U/L Troponin I 0.060 H* 0.105 H* (0.000-0.056) ng/mL Total Protein (6.4-8.2) g/dL Albumin (3.4-5.0) g/dL Globulin (2.6-4.0) g/dL Albumin/Globulin Ratio (0.9-1.6) 11/23/20 11/23/20 Range/Units 06:17 08:18 WBC (4.0-11.0) K/uL RBC (4.50-5.90) M/uL Hgb (13.0-17.0) g/dL Hct (38.0-50.0) % MCV (80.0-98.0) fL MCH (27.0-32.0) pg MCHC (31.0-37.0) g/dL RDW Std Deviation (28.0-62.0) fl RDW Coeff of Negro (11.0-15.0) % Plt Count (150-400) K/uL MPV (7.40-12.00) fL Neut % (Auto) (48.0-80.0) % Lymph % (Auto) (16.0-40.0) % [place] % (Auto) (0.0-15.0) % Eos % (Auto) (0.0-7.0) % Baso % (Auto) (0.0-1.5) % Neut # (Auto) (1.4-5.7) K/uL Lymph # (Auto) (0.6-2.4) K/uL [place] # (Auto) (0.0-0.8) K/uL Eos # (Auto) (0.0-0.7) K/uL Baso # (Auto) (0.0-0.1) K/uL Nucleated RBC % /100WBC Nucleated RBCs # K/uL Sodium 135 L (136-148) mmol/L Potassium 5.7 H (3.5-5.1) mmol/L Chloride 92 L (98-107) mmol/L Carbon Dioxide 15.0 L (21.0-32.0) mmol/L BUN 43 H (7.0-18.0) mg/dL Creatinine 3.1 H (0.8-1.3) mg/dL Est Cr Clr Drug Dosing 21.32 mL/min Estimated GFR (MDRD) 20.1 ml/min Glucose 80 (74-106) mg/dL POC Glucose 122 H (60-110) mg/dL Calcium 9.3 (8.5-10.1) mg/dL Magnesium 2.1 (1.8-2.4) mg/dL Total Bilirubin 2.8 H (0.2-1.0) mg/dL AST 8939 H (15-37) IU/L ALT 4497 H (14-63) IU/L Alkaline Phosphatase 106 (46-116) U/L Troponin I (0.000-0.056) ng/mL Total Protein 6.6 (6.4-8.2) g/dL Albumin 3.3 L (3.4-5.0) g/dL Globulin 3.3 (2.6-4.0) g/dL Albumin/Globulin Ratio 1.0 (0.9-1.6) [place] Results Last 24 Hours: Microbiology 11/21/20 20:53 Aerobic Blood Culture - Preliminary Blood - Venous NO GROWTH AFTER 1 DAY Anaerobic Blood Culture - Final 11/21/20 21:05 Aerobic Blood Culture - Preliminary Blood - Venous - Lab Draw NO GROWTH AFTER 1 DAY Anaerobic Blood Culture - Preliminary NO GROWTH AFTER 1 DAY 11/21/20 09:56 Gram Stain - Final Sputum - Expectorated Med Orders - Current: Current Medications Acetaminophen (Tylenol) 650 mg PO Q4H PRN PRN Reason: Pain (Mild 1-3)/fever Albuterol (Proventil Neb Soln) 2.5 mg NEB Q2H PRN PRN Reason: Shortness Of Breath/wheezing Last Admin: 11/23/20 04:53 Dose: 2.5 mg Documented by: Dextrose/Water (Dextrose 50% In Water) 50 ml IVPUSH ASDIRECTED PRN PRN Reason: Hypoglycemia Dextrose/Water (Dextrose 50% In Water) 50 ml IV ASDIRECTED PRN PRN Reason: Hypoglycemia Enoxaparin Sodium (Lovenox) 80 mg SUBCUT Q12H [facility] Last Admin: 11/23/20 08:45 Dose: 80 mg Documented by: Glucagon (Glucagen) 1 mg IM ASDIRECTED PRN PRN Reason: Hypoglycemia Ceftriaxone Sodium/Dextrose (Rocephin In Dextrose,Iso-Osm 1 Gm/50 Ml) 50 mls @ 100 mls/hr IV Q24H [facility] Last Admin: 11/22/20 21:12 Dose: 100 mls/hr Documented by: Insulin Aspart (Novolog) 0 unit SUBCUT TIDAC [facility]; Protocol Last Admin: 11/23/20 08:32 Dose: Not Given Documented by: Metoprolol Tartrate (Lopressor) 12.5 mg PO Q12H [facility] Last Admin: 11/22/20 20:50 Dose: Not Given Documented by: Ondansetron HCl (Zofran Odt) 4 mg PO Q4H PRN PRN Reason: nausea, able to take PO Pantoprazole Sodium (Protonix Iv) 40 mg IVPUSH Q12HR [facility] Last Admin: 11/23/20 08:48 Dose: 40 mg Documented by: Sodium Chloride (Saline Flush) 10 ml FLUSH ASDIRECTED PRN PRN Reason: Keep Vein Open Last Admin: 11/21/20 16:37 Dose: 10 ml Documented by: Sodium Chloride (Saline Flush) 2.5 ml FLUSH ASDIRECTED PRN PRN Reason: Keep Vein Open Last Admin: 11/21/20 16:37 Dose: 2.5 ml Documented by: Discontinued Medications Aspirin (Aspirin) 325 mg PO ONETIME ONE Stop: 11/22/20 18:49 Last Admin: 11/22/20 19:02 Dose: 325 mg Documented by: Azithromycin (Zithromax) 500 mg PO Q24H ONE Stop: 11/21/20 20:06 Last Admin: 11/21/20 21:03 Dose: 500 mg Documented by: Dextrose/Water (Dextrose 50% In Water) 50 ml IV ASDIRECTED PRN PRN Reason: Hypoglycemia Diltiazem HCl (Diltiazem) 25 mg IVPUSH ONETIME ONE Stop: 11/21/20 16:18 Last Admin: 11/21/20 16:37 Dose: 25 mg Documented by: Furosemide (Lasix) 40 mg IVPUSH NOW ONE Stop: 11/21/20 20:09 Last Admin: 11/21/20 20:57 Dose: 40 mg Documented by: Furosemide (Lasix) 80 mg IVPUSH NOW ONE Stop: 11/22/20 13:38 Last Admin: 11/22/20 14:02 Dose: 80 mg Documented by: Furosemide (Lasix) 80 mg IVPUSH ONETIME ONE Stop: 11/22/20 20:01 Last Admin: 11/22/20 20:50 Dose: Not Given Documented by: Diltiazem HCl 100 mg/ Sodium (Chloride) 100 mls @ 5 mls/hr IV NOW [place]; Protocol Last Admin: 11/21/20 16:36 Dose: 5 mg/hr, 5 mls/hr Documented by: Magnesium Sulfate 2 gm/ Premix 50 mls @ 50 mls/hr IV ONETIME ONE Stop: 11/21/20 18:39 Last Admin: 11/21/20 18:03 Dose: 50 mls/hr Documented by: Amiodarone HCl/Dextrose (Nexterone In Dextrose 360 Mg/200 Ml) 360 mg in 200 mls @ 33.333 mls/hr IV STAT [place] Stop: 11/22/20 02:49 Last Admin: 11/21/20 20:48 Dose: 1 mg/min, 33.333 mls/hr Documented by: Sodium Chloride (Normal Saline) Confirm Administered Dose 100 mls @ as directed .ROUTE .STK-MED ONE Stop: 11/21/20 20:05 Last Admin: 11/21/20 20:16 Dose: Not Given Documented by: Ceftriaxone Sodium 1 gm/ (Sodium Chloride) 50 mls @ 100 mls/hr IV Q24H [facility] Last Admin: 11/21/20 22:51 Dose: Not Given Documented by: Amiodarone HCl 150 mg/ (Dextrose/Water) 103 mls @ 600 mls/hr IV .BOLUS ONE Stop: 11/21/20 20:25 Last Admin: 11/21/20 20:42 Dose: Not Given Documented by: Amiodarone HCl/Dextrose (Nexterone In Dextrose 150 Mg/100 Ml) Confirm Administered Dose 100 mls @ as directed IV .ST-MED ONE Stop: 11/21/20 20:27 Last Admin: 11/21/20 20:37 Dose: Not Given Documented by: Amiodarone HCl/Dextrose (Nexterone In Dextrose 150 Mg/100 Ml) 100 mls @ 600 mls/hr IV ONETIME ONE Stop: 11/21/20 20:54 Last Admin: 11/21/20 20:37 Dose: 600 mls/hr Documented by: Ceftriaxone Sodium/Dextrose (Rocephin In Dextrose,Iso-Osm 1 Gm/50 Ml) Confirm Administered Dose 50 mls @ as directed .ROUTE .[facility]-MED ONE Stop: 11/21/20 21:20 Last Admin: 11/21/20 21:22 Dose: 100 mls/hr Documented by: Amiodarone HCl/Dextrose (Nexterone In Dextrose 360 Mg/200 Ml) 360 mg in 200 mls @ 16.667 mls/hr IV ASDIRECTED [facility]; Protocol Stop: 11/23/20 20:51 Last Admin: 11/23/20 02:43 Dose: 0.5 mg/min, 16.667 mls/hr Documented by: Metoprolol Tartrate 5 mg/ (Sodium Chloride) 55 mls @ 100 mls/hr IV ONETIME ONE Stop: 11/22/20 12:02 Last Admin: 11/22/20 11:57 Dose: 100 mls/hr Documented by: Metoprolol Tartrate 5 mg/ (Sodium Chloride) 55 mls @ 100 mls/hr IV ONETIME ONE Stop: 11/22/20 19:19 Last Admin: 11/22/20 19:17 Dose: 100 mls/hr Documented by: Insulin Human Regular (Novolin R) 3 unit SUBCUT ONETIME ONE; Protocol Stop: 11/22/20 06:04 Last Admin: 11/22/20 06:19 Dose: 3 units Documented by: Lorazepam (Ativan) 0.5 mg PO ONETIME ONE Stop: 11/22/20 13:38 Last Admin: 11/22/20 14:01 Dose: 0.5 mg Documented by: Melatonin (Melatonin) 3 mg PO BEDTIME ONE Stop: 11/22/20 18:52 Last Admin: 11/22/20 21:22 Dose: 3 mg Documented by: Sepsis Event Note - Evaluation Sepsis Screening Result: No Definite Risk - Focused Exam Vital Signs: Vital Signs Temp Resp BP Pulse Ox 11/23/20 07:00 20 95/67 98 11/23/20 06:00 18 88/51 L 95 11/23/20 05:00 23 H 99/53 L 11/23/20 04:00 36.4 C 22 H 92/60 96 11/23/20 03:00 22 H 83/59 L 94 L 11/23/20 02:00 24 H 96/63 97 11/23/20 01:00 21 H 91/59 L 97 11/23/20 00:00 36.2 C 23 H 91/58 L 97 11/22/20 23:00 20 81/35 L 96 - My Orders Last 24 Hours: My Active Orders 11/22/20 11:46 Bladder Scan [RC] ASDIRECTED 11/22/20 20:00 Metoprolol Tartrate [Lopressor] 12.5 mg PO Q12H - Plan Plan:: 70 yo male admitted with CHF exacerbation and a.fib with RVR. A.fib with RVR: on loading dose amiodarone drip, Discussed case with eICU physician and will try a dose of metoprolol IV CHF: if blood pressure remains stable with beta christianne will try higher dose of lasix Continue full dose lovenox
[2020-11-23] MEDS ORDERED: Levofloxacin/Dextrose 5%-Water 750 MG in Premix Bag 1 BAG IV ONE (10:29)
--- NOTE | 2020-11-23 10:30 | PCM.DCSUM1 ---
Discharge Summary - Discharge Data Discharge Date: 11/23/20 Discharge Disposition: DC/Tfer to Acute Hospital 02 Condition: Fair - Referral to Home Health Primary Care Physician: [facility] - Patient Summary/Data Consults: Consultations 11/21/20 19:36 Respiratory Care Assess and Treatment [CONS] Routine Hospital Course: Patient is a 70-year-old male with pmh of DM who last month was diagnosed with congestive heart failure with EF of 24-30% and atrial fibrillation. Patient presented with comlaints of shortness of breath, orthopnea and pedal edema. His heart rate was noted to be 120-120s bpm with BP of 90-110s systolic. EKG reported atrial fibrillation iwht HR 130. CXR reported small right pleural effusion with right basilar consolidation. 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 CBC was normal, CMP had mild transaminitis. BNP 496 and COVID negative. Patient was given a diltiazem push with improvement in heart but due to lower blood pressures patient was loaded with amiodarone. Diuresis was attempted IV lasix 40mg IV the first day and 80mg the second day. Patient was given prn metoprolol IV. He was placed on theraputic lovenox for stroke prevention. During his stay he did have episodic tachypnea thought to be [place]. He did have brief periods of low BP in the 80-90s systolic but mainly maintained BP in the 90-110s systolic. His creatinine today has increased to 3.1 and his AST brett to 8939 and ALT 4497 likely from shock liver from low blood pressures. This morning he continues to have BP in the 90- 110s and is mentating well. If his blood pressure drops would consider vasopressors but for now will avoid considering his history of a.fib with RVR. He has been given empiric antibiotics but infection is thought to be less likely. Our eICU recommended transferring for hepatology consultation. Dr. Herman from [facility] in [place] has accepted the patient. Transportation is being arranged. - Discharge Plan Home Medications: Home Meds glipiZIDE [Glucotrol XL] 10 mg PO DAILY 08/15/19 [History] Apixaban [Eliquis] 5 mg PO BID #60 tablet 01/31/20 [Rx] Furosemide [Lasix] 40 mg PO BID 11/21/20 [History] metFORMIN [Glucophage] 1,000 mg PO BIDMEALS 11/22/20 [History] Forms: ED Department Discharge [facility]errals[facility] [Primary Care Provider] - - Discharge Summary/Plan Comment DC Time >30 min.: No - Patient Data Vitals - Most Recent: Last Vital Signs Temp 36.4 C 11/23/20 04:00 Pulse 79 11/23/20 09:45 Resp 20 11/23/20 07:00 BP 86/58 L 11/23/20 09:45 Pulse Ox 98 11/23/20 07:00 Weight - Most Recent: 87.952 kg I&O - Last 24 hours: Intake & Output 11/22/20 11/23/20 11/23/20 22:59 06:59 14:59 Intake Total 850 850 Output Total 700 400 Balance 150 450 Lab Results - Last 24 hrs: Laboratory Results - last 24 hr 11/22/20 11/22/20 11/22/20 Range/Units 11:29 11:50 17:58 WBC (4.0-11.0) K/uL RBC (4.50-5.90) M/uL Hgb (13.0-17.0) g/dL Hct (38.0-50.0) % MCV (80.0-98.0) fL MCH (27.0-32.0) pg MCHC (31.0-37.0) g/dL RDW Std Deviation (28.0-62.0) fl RDW Coeff of Negro (11.0-15.0) % Plt Count (150-400) K/uL MPV (7.40-12.00) fL Neut % (Auto) (48.0-80.0) % Lymph % (Auto) (16.0-40.0) % [place] % (Auto) (0.0-15.0) % Eos % (Auto) (0.0-7.0) % Baso % (Auto) (0.0-1.5) % Neut # (Auto) (1.4-5.7) K/uL Lymph # (Auto) (0.6-2.4) K/uL [place] # (Auto) (0.0-0.8) K/uL Eos # (Auto) (0.0-0.7) K/uL Baso # (Auto) (0.0-0.1) K/uL Nucleated RBC % /100WBC Nucleated RBCs # K/uL Sodium (136-148) mmol/L Potassium (3.5-5.1) mmol/L Chloride (98-107) mmol/L Carbon Dioxide (21.0-32.0) mmol/L BUN (7.0-18.0) mg/dL Creatinine (0.8-1.3) mg/dL Est Cr Clr Drug Dosing mL/min Estimated GFR (MDRD) ml/min Glucose (74-106) mg/dL POC Glucose 166 H 133 H (60-110) mg/dL Calcium (8.5-10.1) mg/dL Magnesium (1.8-2.4) mg/dL Total Bilirubin (0.2-1.0) mg/dL AST (15-37) IU/L ALT (14-63) IU/L Alkaline Phosphatase (46-116) U/L Troponin I < 0.050 (0.000-0.056) ng/mL Total Protein (6.4-8.2) g/dL Albumin (3.4-5.0) g/dL Globulin (2.6-4.0) g/dL Albumin/Globulin Ratio (0.9-1.6) 11/22/20 11/23/20 11/23/20 Range/Units 17:59 02:13 06:17 WBC 16.53 H (4.0-11.0) K/uL RBC 4.87 (4.50-5.90) M/uL Hgb 14.9 (13.0-17.0) g/dL Hct 46.1 (38.0-50.0) % MCV 94.7 (80.0-98.0) fL MCH 30.6 (27.0-32.0) pg MCHC 32.3 (31.0-37.0) g/dL RDW Std Deviation 50.5 (28.0-62.0) fl RDW Coeff of Negro 15 (11.0-15.0) % Plt Count 175 (150-400) K/uL MPV 11.60 (7.40-12.00) fL Neut % (Auto) 79.5 (48.0-80.0) % Lymph % (Auto) 7.1 L (16.0-40.0) % [place] % (Auto) 13.2 (0.0-15.0) % Eos % (Auto) 0.1 (0.0-7.0) % Baso % (Auto) 0.1 (0.0-1.5) % Neut # (Auto) 13.2 H (1.4-5.7) K/uL Lymph # (Auto) 1.2 (0.6-2.4) K/uL [place] # (Auto) 2.2 H (0.0-0.8) K/uL Eos # (Auto) 0.0 (0.0-0.7) K/uL Baso # (Auto) 0.0 (0.0-0.1) K/uL Nucleated RBC % 0.0 /100WBC Nucleated RBCs # 0 K/uL Sodium (136-148) mmol/L Potassium (3.5-5.1) mmol/L Chloride (98-107) mmol/L Carbon Dioxide (21.0-32.0) mmol/L BUN (7.0-18.0) mg/dL Creatinine (0.8-1.3) mg/dL Est Cr Clr Drug Dosing mL/min Estimated GFR (MDRD) ml/min Glucose (74-106) mg/dL POC Glucose (60-110) mg/dL Calcium (8.5-10.1) mg/dL Magnesium (1.8-2.4) mg/dL Total Bilirubin (0.2-1.0) mg/dL AST (15-37) IU/L ALT (14-63) IU/L Alkaline Phosphatase (46-116) U/L Troponin I 0.060 H* 0.105 H* (0.000-0.056) ng/mL Total Protein (6.4-8.2) g/dL Albumin (3.4-5.0) g/dL Globulin (2.6-4.0) g/dL Albumin/Globulin Ratio (0.9-1.6) 11/23/20 11/23/20 Range/Units 06:17 08:18 WBC (4.0-11.0) K/uL RBC (4.50-5.90) M/uL Hgb (13.0-17.0) g/dL Hct (38.0-50.0) % MCV (80.0-98.0) fL MCH (27.0-32.0) pg MCHC (31.0-37.0) g/dL RDW Std Deviation (28.0-62.0) fl RDW Coeff of Negro (11.0-15.0) % Plt Count (150-400) K/uL MPV (7.40-12.00) fL Neut % (Auto) (48.0-80.0) % Lymph % (Auto) (16.0-40.0) % [place] % (Auto) (0.0-15.0) % Eos % (Auto) (0.0-7.0) % Baso % (Auto) (0.0-1.5) % Neut # (Auto) (1.4-5.7) K/uL Lymph # (Auto) (0.6-2.4) K/uL [place] # (Auto) (0.0-0.8) K/uL Eos # (Auto) (0.0-0.7) K/uL Baso # (Auto) (0.0-0.1) K/uL Nucleated RBC % /100WBC Nucleated RBCs # K/uL Sodium 135 L (136-148) mmol/L Potassium 5.7 H (3.5-5.1) mmol/L Chloride 92 L (98-107) mmol/L Carbon Dioxide 15.0 L (21.0-32.0) mmol/L BUN 43 H (7.0-18.0) mg/dL Creatinine 3.1 H (0.8-1.3) mg/dL Est Cr Clr Drug Dosing 21.32 mL/min Estimated GFR (MDRD) 20.1 ml/min Glucose 80 (74-106) mg/dL POC Glucose 122 H (60-110) mg/dL Calcium 9.3 (8.5-10.1) mg/dL Magnesium 2.1 (1.8-2.4) mg/dL Total Bilirubin 2.8 H (0.2-1.0) mg/dL AST 8939 H (15-37) IU/L ALT 4497 H (14-63) IU/L Alkaline Phosphatase 106 (46-116) U/L Troponin I (0.000-0.056) ng/mL Total Protein 6.6 (6.4-8.2) g/dL Albumin 3.3 L (3.4-5.0) g/dL Globulin 3.3 (2.6-4.0) g/dL Albumin/Globulin Ratio 1.0 (0.9-1.6) [place] Results - Last 24 hrs: Microbiology 11/21/20 20:53 Aerobic Blood Culture - Preliminary Blood - Venous NO GROWTH AFTER 1 DAY Anaerobic Blood Culture - Final 11/21/20 21:05 Aerobic Blood Culture - Preliminary Blood - Venous - Lab Draw NO GROWTH AFTER 1 DAY Anaerobic Blood Culture - Preliminary NO GROWTH AFTER 1 DAY 11/21/20 09:56 Gram Stain - Final Sputum - Expectorated Med Orders - Current: Current Medications Acetaminophen (Tylenol) 650 mg PO Q4H PRN PRN Reason: Pain (Mild 1-3)/fever Albuterol (Proventil Neb Soln) 2.5 mg NEB Q2H PRN PRN Reason: Shortness Of Breath/wheezing Last Admin: 11/23/20 04:53 Dose: 2.5 mg Documented by: Dextrose/Water (Dextrose 50% In Water) 50 ml IVPUSH ASDIRECTED PRN PRN Reason: Hypoglycemia Dextrose/Water (Dextrose 50% In Water) 50 ml IV ASDIRECTED PRN PRN Reason: Hypoglycemia Enoxaparin Sodium (Lovenox) 80 mg SUBCUT Q12H [facility] Last Admin: 11/23/20 08:45 Dose: 80 mg Documented by: Glucagon (Glucagen) 1 mg IM ASDIRECTED PRN PRN Reason: Hypoglycemia Ceftriaxone Sodium/Dextrose (Rocephin In Dextrose,Iso-Osm 1 Gm/50 Ml) 50 mls @ 100 mls/hr IV Q24H [facility] Last Admin: 11/22/20 21:12 Dose: 100 mls/hr Documented by: Insulin Aspart (Novolog) 0 unit SUBCUT TIDAC [facility]; Protocol Last Admin: 11/23/20 08:32 Dose: Not Given Documented by: Metoprolol Tartrate (Lopressor) 12.5 mg PO Q12H [facility] Last Admin: 11/23/20 09:45 Dose: Not Given Documented by: Ondansetron HCl (Zofran Odt) 4 mg PO Q4H PRN PRN Reason: nausea, able to take PO Pantoprazole Sodium (Protonix Iv) 40 mg IVPUSH Q12HR [place] Last Admin: 11/23/20 08:48 Dose: 40 mg Documented by: Sodium Chloride (Saline Flush) 10 ml FLUSH ASDIRECTED PRN PRN Reason: Keep Vein Open Last Admin: 11/21/20 16:37 Dose: 10 ml Documented by: Sodium Chloride (Saline Flush) 2.5 ml FLUSH ASDIRECTED PRN PRN Reason: Keep Vein Open Last Admin: 11/21/20 16:37 Dose: 2.5 ml Documented by: Vancomycin HCl (Pharmacy To Dose - Vancomycin) 1 dose .XX ONETIME ONE Stop: 11/23/20 10:29 Discontinued Medications Aspirin (Aspirin) 325 mg PO ONETIME ONE Stop: 11/22/20 18:49 Last Admin: 11/22/20 19:02 Dose: 325 mg Documented by: Azithromycin (Zithromax) 500 mg PO Q24H ONE Stop: 11/21/20 20:06 Last Admin: 11/21/20 21:03 Dose: 500 mg Documented by: Dextrose/Water (Dextrose 50% In Water) 50 ml IV ASDIRECTED PRN PRN Reason: Hypoglycemia Diltiazem HCl (Diltiazem) 25 mg IVPUSH ONETIME ONE Stop: 11/21/20 16:18 Last Admin: 11/21/20 16:37 Dose: 25 mg Documented by: Furosemide (Lasix) 40 mg IVPUSH NOW ONE Stop: 11/21/20 20:09 Last Admin: 11/21/20 20:57 Dose: 40 mg Documented by: Furosemide (Lasix) 80 mg IVPUSH NOW ONE Stop: 11/22/20 13:38 Last Admin: 11/22/20 14:02 Dose: 80 mg Documented by: Furosemide (Lasix) 80 mg IVPUSH ONETIME ONE Stop: 11/22/20 20:01 Last Admin: 11/22/20 20:50 Dose: Not Given Documented by: Diltiazem HCl 100 mg/ Sodium (Chloride) 100 mls @ 5 mls/hr IV NOW [place]; Protocol Last Admin: 11/21/20 16:36 Dose: 5 mg/hr, 5 mls/hr Documented by: Magnesium Sulfate 2 gm/ Premix 50 mls @ 50 mls/hr IV ONETIME ONE Stop: 11/21/20 18:39 Last Admin: 11/21/20 18:03 Dose: 50 mls/hr Documented by: Amiodarone HCl/Dextrose (Nexterone In Dextrose 360 Mg/200 Ml) 360 mg in 200 mls @ 33.333 mls/hr IV STAT [place] Stop: 11/22/20 02:49 Last Admin: 11/21/20 20:48 Dose: 1 mg/min, 33.333 mls/hr Documented by: Sodium Chloride (Normal Saline) Confirm Administered Dose 100 mls @ as directed .ROUTE .STK-MED ONE Stop: 11/21/20 20:05 Last Admin: 11/21/20 20:16 Dose: Not Given Documented by: Ceftriaxone Sodium 1 gm/ (Sodium Chloride) 50 mls @ 100 mls/hr IV Q24H [facility] Last Admin: 11/21/20 22:51 Dose: Not Given Documented by: Amiodarone HCl 150 mg/ (Dextrose/Water) 103 mls @ 600 mls/hr IV .BOLUS ONE Stop: 11/21/20 20:25 Last Admin: 11/21/20 20:42 Dose: Not Given Documented by: Amiodarone HCl/Dextrose (Nexterone In Dextrose 150 Mg/100 Ml) Confirm Administered Dose 100 mls @ as directed IV .STK-MED ONE Stop: 11/21/20 20:27 Last Admin: 11/21/20 20:37 Dose: Not Given Documented by: Amiodarone HCl/Dextrose (Nexterone In Dextrose 150 Mg/100 Ml) 100 mls @ 600 mls/hr IV ONETIME ONE Stop: 11/21/20 20:54 Last Admin: 11/21/20 20:37 Dose: 600 mls/hr Documented by: Ceftriaxone Sodium/Dextrose (Rocephin In Dextrose,Iso-Osm 1 Gm/50 Ml) Confirm Administered Dose 50 mls @ as directed .ROUTE .STK-MED ONE Stop: 11/21/20 21:20 Last Admin: 11/21/20 21:22 Dose: 100 mls/hr Documented by: Amiodarone HCl/Dextrose (Nexterone In Dextrose 360 Mg/200 Ml) 360 mg in 200 mls @ 16.667 mls/hr IV ASDIRECTED [facility]; Protocol Stop: 11/23/20 20:51 Last Admin: 11/23/20 02:43 Dose: 0.5 mg/min, 16.667 mls/hr Documented by: Metoprolol Tartrate 5 mg/ (Sodium Chloride) 55 mls @ 100 mls/hr IV ONETIME ONE Stop: 11/22/20 12:02 Last Admin: 11/22/20 11:57 Dose: 100 mls/hr Documented by: Metoprolol Tartrate 5 mg/ (Sodium Chloride) 55 mls @ 100 mls/hr IV ONETIME ONE Stop: 11/22/20 19:19 Last Admin: 11/22/20 19:17 Dose: 100 mls/hr Documented by: Insulin Human Regular (Novolin R) 3 unit SUBCUT ONETIME ONE; Protocol Stop: 11/22/20 06:04 Last Admin: 11/22/20 06:19 Dose: 3 units Documented by: Lorazepam (Ativan) 0.5 mg PO ONETIME ONE Stop: 11/22/20 13:38 Last Admin: 11/22/20 14:01 Dose: 0.5 mg Documented by: Melatonin (Melatonin) 3 mg PO BEDTIME ONE Stop: 11/22/20 18:52 Last Admin: 11/22/20 21:22 Dose: 3 mg Documented by:
[2020-11-23 11:31] LABS: CARBON DIOXIDE,CO2 14.2 mmol/L (21.0-32.0); POTASSIUM,K 5.8 mmol/L (3.5-5.1)
[2020-11-23] MEDS ORDERED: Sodium Chloride 0.65% Nasal Spray 45 ML Bottle NAS PRN (12:37)
== END 2020-11-23 15:00 | DRG 291 ==
LOC: MW.ED 15:54 → OBSVTOIN 18:40 → MW.ICU 18:40
PROVIDERS: ADMIT Internal Medicine; ATTEND Internal Medicine
DX: I11.0 Hypertensive heart disease with heart failure (principal); E11.9 Type 2 diabetes mellitus without complications; I25.2 Old myocardial infarction; Z79.01 Long term (current) use of anticoagulants; K72.00 Acute and subacute hepatic failure without coma; R06.3 Periodic breathing; I50.9 Heart failure, unspecified; I50.23 Acute on chronic systolic (congestive) heart failure; I48.91 Unspecified atrial fibrillation; R74.8 Abnormal levels of other serum enzymes; Z20.822 Contact with and (suspected) exposure to COVID-19; E83.42 Hypomagnesemia; E11.65 Type 2 diabetes mellitus with hyperglycemia; Z79.84 Long term (current) use of oral hypoglycemic drugs; Z79.899 Other long term (current) drug therapy; Z91.19 Patient's noncompliance with other medical treatment and regimen
CPT/HCPCS: 36415; 71045; 80053; 83605; 83735; 83880; 84443; 84484; 85025; 85610; 85730; 87070; 87205; 96365; 96366; 96368; 96376; 99285; J3475; J3490 ×2; J7050; U0002; 36600; 81003; 82803; 82962; 84481; 87040; 93005; 93010; 94660; 99284; A9270-GY; C9113; J0282; J0696; J1650; J1815-GY; J1940; J1956; J3370

== ENCOUNTER 2021-01-30 14:15 | Emergency (ER) | payer MEDICARE ==
[2021-01-30] MEDS ORDERED: Sodium Chloride 0.9% 2.5 ML Syringe FLUSH PRN (14:42)
[2021-01-30] MEDS ORDERED: Sodium Chloride 0.9% 10 ML Syringe FLUSH PRN (14:42)
[2021-01-30] MEDS ORDERED: 50% Dextrose in Water 50 ML Syringe IVPUSH ONE (14:55)
[2021-01-30] MEDS ORDERED: Sodium Chloride 0.9% 1,000 ML IV ONE (14:55)
--- NOTE | 2021-01-30 15:08 | PCM.EKG ---
#1 Interpretation EKG Date: 01/30/21 Time: 14:40 Rhythm: NSR Rate (Beats/Min): 74 [place]: Normal P-Wave: Present QRS: Normal ST-T: Normal QT: Normal MA/PQ Interval: 146 Comparison: NA - No Prior EKG EKG Interpretation Comments: no ischemic changes
[2021-01-30 15:22] LABS: BLOOD UREA NITROGEN,BUN 15 mg/dL (7.0-18.0); CARBON DIOXIDE,CO2 30.1 mmol/L (21.0-32.0); CHLORIDE,CL 102 mmol/L (98-107); GLUCOSE RANDOM 59 mg/dL (74-106); LIPASE 259 U/L (73-393); POTASSIUM,K 4.2 mmol/L (3.5-5.1); SODIUM,NA 139 mmol/L (136-148)
--- NOTE | 2021-01-30 15:32 | CR ---
Indication: Syncope Technique: Chest 1 view Comparison: November 21, 2020 Findings/Impression colon : Normal cardiomediastinal silhouette and pulmonary vasculature. Calcified granuloma in the right upper lobe. Complete resolution of right pleural effusion and atelectasis versus infiltrate at the right lung base. No new focal infiltrate or pneumothorax. Degenerative changes in the left glenohumeral joint. Dictated by Shalini Almeida MD @ Jan 30 2021 3:30PM Signed by Dr. Shalini Almeida @ Jan 30 2021 3:30PM
--- NOTE | 2021-01-30 17:25 | CT ---
INDICATION: Head injury. TECHNIQUE: CT of the head without contrast. Coronal and sagittal reformats are included. COMPARISON: None. FINDINGS: No acute intracranial hemorrhage. No mass effect or midline shift. No hydrocephalus or extra-axial collections. Mild to moderate generalized parenchymal volume loss. Patchy white matter hypoattenuation, typical for chronic microvascular ischemic changes. No acute osseous abnormalities. Complete opacification of the right frontal and maxillary sinuses, with accompanying chronic osteitis. Multifocal opacification of the ethmoid air cells. Mastoid air cells are clear. Normal soft tissues. IMPRESSION: 1. No acute intracranial abnormalities. 2. Chronic/atrophic parenchymal changes. 3. Chronic right frontal and maxillary sinusitis. Please note that all CT scans at this facility use dose modulation, iterative reconstruction, and/or weight-based dosing when appropriate to reduce radiation dose to as low as reasonably achievable. Dictated by Alexander Guillen MD @ Jan 30 2021 5:21PM Signed by Dr. Alexander Guillen @ Jan 30 2021 5:24PM
--- NOTE | 2021-01-30 17:47 | EDM.PDOC ---
ED HPI GENERAL MEDICAL PROBLEM - General Chief Complaint: Diabetic Complaint Stated Complaint: BLOOD SUGAR Time Seen by Provider: 01/30/21 14:17 Source of Information: Reports: Patient History Limitations: Reports: No Limitations - History of Present Illness INITIAL COMMENTS - FREE TEXT/NARRATIVE: HISTORY AND PHYSICAL: History of present illness: Patient is a 70-year-old male who presents to the ED today with concern of low blood sugars causing him to get lightheaded and have near syncope episodes x 3 days. Patient states that over the course of the last 1 month or so, he has stopped all of his home medications as he was unable to afford them. Patient states that he also used to be on insulin for his diabetes, but states that he was able to go back to Metformin and glipizide. Patient states 6 days ago, he decided to take the glipizide and Metformin again and states he has been taking this daily. Patient states he has noticed 3 to 4 days ago, he is having multipl e hypoglycemic episodes and is unable to get his blood sugar above 60 at home. Patient states that he is eating sugary foods, and the highest he has got is to 70. Patient states he is having episodes of lightheadedness and near syncope and states he is able to lower himself to the ground and feels better after several seconds. Patient states he does not believe to has hit his head but he is unaware. Patient states he has had "to multiple "of these events to count. Patient states that he continues to take his glipizide and Metformin even this morning despite his low blood sugars. Patient states that he was diagnosed with hepatitis C after his last hospital stay and had to get transferred to [facility]. Patient states he is supposed to follow-up with infectious disease provider. But he has not done this yet. He is not taking Eliquis and has not for 1 month. Patient denies fever, chills, chest pain, shortness of breath, or cough. Denies headache, neck stiff ness, change in vision. Denies nausea, vomiting, abdominal pain, diarrhea, constipation, or dysuria. Has not noted any blood in urine or stool. Patient has been eating and drinking appropriately. Review of systems: As per history of present illness and below otherwise all systems reviewed and negative. Past medical history: As per history of present illness and as reviewed below otherwise noncontributory. Surgical history: As per history of present illness and as reviewed below otherwise noncontributory. Social history: See social history for further information Family history: As per history of present illness and as reviewed below otherwise noncontributory. Physical exam: General: Patient is alert, oriented, and in no acute distress. Patient sitting comfortably on exam table. Vitals stable and reviewed by me. HEENT: Atraumatic, normocephalic, pupils equal and reactive bilaterally, negative for conjunctival pallor or scleral icterus, mucous membranes moist, TMs normal bilaterally, throat clear, neck supple, nontender, trachea midline. No drooling or trismus noted. No meningeal signs. No hot potato voice noted. Lungs: Clear to auscultation, breath sounds equal bilaterally, chest nontender. Heart: S1S2, regular rate and rhythm without overt murmur Abdomen: Soft, nondistended, nontender. Negative for masses or hepatosplenomegaly. Negative for costovertebral tenderness. Pelvis: Stable nontender. Genitourinary: Deferred. Rectal: Deferred. Skin: Intact, warm, dry. No lesions or rashes noted. Extremities: Atraumatic, negative for cords or calf pain. Neurovascular unremarkable. Neuro: Awake, alert, oriented. Cranial nerves II through XII unremarkable. Cerebellum unremarkable. Motor and sensory unremarkable throughout. Exam nonfocal. Notes: On arrival to the ED, patient is vitally stable, and well-appearing. Bedside glucose 68 on arrival. 1/2 amp D50W given. Will perform routine labwork and cardiac eval due to near syncopal symptoms. Patient is also unaware if he has hit his head, although which he believes he has not, will get head CT scan in the event that he has had multiple near syncopal episodes with questionable head injury. Lab work unremarkable other than hypoglycemia. Patient was observed for a total of 4 hours in the emergency room and was able to tolerate a full meal in the emergency room with maintained sugar levels. I suspect that patient's hypoglycemic episodes are due to medication misuse. Patient has not been taking his medications for several weeks, and now has decided to take his glipizide, which I suspect is the source of his hypoglycemic episodes. Discussed with patient stopping his glipizide and Metformin and to follow-up with his primary care provider this week for medication reevaluation. Discussed monitoring glucose levels strictly at home every 4 hours or if symptomatic. Strict return precautions thoroughly discussed with patient. Discussed importance for follow-up with a primary care provider this week. Sees Dr. Giron, primary care Voices understanding and is agreeable to plan of care. Denies any further questions or concerns at this time. Diagnostics: EKG, CBC, CMP, UA, CXR, Trop, Bedside glucose, Head CT Therapeutics: NS, 1/2 Amp D50W Prescription: None Impression: Hypoglycemia Medication misuse Plan: 1. Stop taking Metformin and Glipizide until you have followed up with your primary care provider this week for further medication management. 2. Closely monitor your blood sugar at home. You should be checking your sugars every 4 hours at home or sooner if symptomatic. 3. Follow-up with your primary care provider this week as discussed. Return to the ED as needed and as discussed. Definitive disposition and diagnosis as appropriate pending reevaluation and review of above. - Related Data Allergies Allergy/AdvReac Type Severity Reaction Status Date / Time No Known Allergies Allergy Verified 01/30/21 14:49 Home Meds: Home Meds glipiZIDE [Glucotrol XL] 10 mg PO DAILY 08/15/19 [History] Apixaban [Eliquis] 5 mg PO BID #60 tablet 01/31/20 [Rx] Furosemide [Lasix] 40 mg PO BID 11/21/20 [History] metFORMIN [Glucophage] 1,000 mg PO BIDMEALS 11/22/20 [History] Past Medical History - Past Health History Medical/Surgical History: Denies Medical/Surgical History HEENT History: Reports: None Cardiovascular History: Reports: Other (See Below) Other Cardiovascular History: pt. states he has a history of "heart flutters' and a "mild heart attack" Respiratory History: Reports: None Gastrointestinal History: Reports: None Genitourinary History: Reports: None Neurological History: Reports: None Psychiatric History: Reports: None Endocrine/Metabolic History: Reports: Diabetes, Type II Hematologic History: Reports: None Immunologic History: Reports: None Oncologic (Cancer) History: Reports: None Dermatologic History: Reports: None - Infectious Disease History Infectious Disease History: Reports: Chicken Pox, Measles, Mumps - Past Surgical History Head Surgeries/Procedures: Reports: None Social & Family History - Family History Family Medical History: No Pertinent Family History - Tobacco Use Tobacco Use Status *Q: Never Tobacco User - Caffeine Use Caffeine Use: Reports: None - Recreational Drug Use Recreational Drug Use: No ED ROS GENERAL - Review of Systems Review Of Systems: Comprehensive ROS is negative, except as noted in HPI. ED EXAM, GENERAL - Physical Exam Exam: See Below (see dictation) Course - Vital Signs Last Recorded V/S: Last Vital Signs Temp 97.7 F 01/30/21 14:50 Pulse 69 01/30/21 16:41 Resp 18 01/30/21 14:50 BP 114/63 01/30/21 16:41 Pulse Ox 95 01/30/21 16:41 - Orders/Labs/Meds Orders: Active Orders 24 hr Category Date Time Status EKG Documentation Completion [RC] STAT Care 01/30/21 14:56 Active Glucose [Blood Glucose Check, Bedside] [RC] BIDMEALS Care 01/30/21 18:29 Active Glucose [Blood Glucose Check, Bedside] [RC] ONETIME Care 01/30/21 15:27 Active Glucose [Blood Glucose Check, Bedside] [RC] ONETIME Care 01/30/21 15:28 Active Glucose [Blood Glucose Check, Bedside] [RC] ONETIME Care 01/30/21 16:15 Active Sodium Chloride 0.9% [Saline Flush] Med 01/30/21 14:42 Active 10 ml FLUSH ASDIRECTED PRN Sodium Chloride 0.9% [Saline Flush] Med 01/30/21 14:42 Active 2.5 ml FLUSH ASDIRECTED PRN Saline Lock Insert [OM.PC] Stat Oth 01/30/21 14:42 Ordered Medication Orders Sodium Chloride (Sodium Chloride 0.9% 10 Ml Syringe) 10 ml FLUSH ASDIRECTED PRN PRN Reason: Keep Vein Open Last Admin: 01/30/21 14:45 Dose: 10 ml Documented by: [id number] Sodium Chloride (Sodium Chloride 0.9% 2.5 Ml Syringe) 2.5 ml FLUSH ASDIRECTED PRN PRN Reason: Keep Vein Open Last Admin: 01/30/21 14:45 Dose: 2.5 ml Documented by: [id number] Labs: Laboratory Tests 01/30/21 01/30/21 01/30/21 Range/Units 14:41 14:48 14:48 WBC 6.99 (4.0-11.0) K/uL RBC 4.73 (4.50-5.90) M/uL Hgb 14.9 (13.0-17.0) g/dL Hct 42.9 (38.0-50.0) % MCV 90.7 (80.0-98.0) fL MCH 31.5 (27.0-32.0) pg MCHC 34.7 (31.0-37.0) g/dL RDW Std Deviation 51.1 (28.0-62.0) fl RDW Coeff of Negro 16 H (11.0-15.0) % Plt Count 191 (150-400) K/uL MPV 10.40 (7.40-12.00) fL Neut % (Auto) 52.6 (48.0-80.0) % Lymph % (Auto) 31.5 (16.0-40.0) % [place] % (Auto) 12.2 (0.0-15.0) % Eos % (Auto) 2.7 (0.0-7.0) % Baso % (Auto) 1.0 (0.0-1.5) % Neut # (Auto) 3.7 (1.4-5.7) K/uL Lymph # (Auto) 2.2 (0.6-2.4) K/uL [place] # (Auto) 0.9 H (0.0-0.8) K/uL Eos # (Auto) 0.2 (0.0-0.7) K/uL Baso # (Auto) 0.1 (0.0-0.1) K/uL Sodium 139 (136-148) mmol/L Potassium 4.2 (3.5-5.1) mmol/L Chloride 102 (98-107) mmol/L Carbon Dioxide 30.1 (21.0-32.0) mmol/L BUN 15 (7.0-18.0) mg/dL Creatinine 0.9 (0.8-1.3) mg/dL Est Cr Clr Drug Dosing 83.67 mL/min Estimated GFR (MDRD) > 60.0 ml/min Glucose 59 L (74-106) mg/dL POC Glucose 67 (60-110) mg/dL Calcium 9.5 (8.5-10.1) mg/dL Total Bilirubin 0.5 (0.2-1.0) mg/dL AST 41 H (15-37) IU/L ALT 65 H (14-63) IU/L Alkaline Phosphatase 107 (46-116) U/L Troponin I (0.000-0.056) ng/mL Total Protein 7.1 (6.4-8.2) g/dL Albumin 3.7 (3.4-5.0) g/dL Globulin 3.4 (2.6-4.0) g/dL Albumin/Globulin Ratio 1.1 (0.9-1.6) Lipase 259 (73-393) U/L Urine Color Urine Appearance Urine pH (5.0-8.0) Ur Specific Clinton (1.001-1.035) Urine Protein (NEGATIVE) mg/dL Urine Glucose (UA) (NEGATIVE) mg/dL Urine Ketones (NEGATIVE) mg/dL Urine Occult Blood (NEGATIVE) Urine Nitrite (NEGATIVE) Urine Bilirubin (NEGATIVE) Urine Urobilinogen (<2.0) EU/dL Ur Leukocyte Esterase (NEGATIVE) 01/30/21 01/30/21 01/30/21 Range/Units 14:48 15:33 16:25 WBC (4.0-11.0) K/uL RBC (4.50-5.90) M/uL Hgb (13.0-17.0) g/dL Hct (38.0-50.0) % MCV (80.0-98.0) fL MCH (27.0-32.0) pg MCHC (31.0-37.0) g/dL RDW Std Deviation (28.0-62.0) fl RDW Coeff of Negro (11.0-15.0) % Plt Count (150-400) K/uL MPV (7.40-12.00) fL Neut % (Auto) (48.0-80.0) % Lymph % (Auto) (16.0-40.0) % Richmond % (Auto) (0.0-15.0) % Eos % (Auto) (0.0-7.0) % Baso % (Auto) (0.0-1.5) % Neut # (Auto) (1.4-5.7) K/uL Lymph # (Auto) (0.6-2.4) K/uL [place] # (Auto) (0.0-0.8) K/uL Eos # (Auto) (0.0-0.7) K/uL Baso # (Auto) (0.0-0.1) K/uL Sodium (136-148) mmol/L Potassium (3.5-5.1) mmol/L Chloride (98-107) mmol/L Carbon Dioxide (21.0-32.0) mmol/L BUN (7.0-18.0) mg/dL Creatinine (0.8-1.3) mg/dL Est Cr Clr Drug Dosing mL/min Estimated GFR (MDRD) ml/min Glucose (74-106) mg/dL POC Glucose 136 H 98 (60-110) mg/dL Calcium (8.5-10.1) mg/dL Total Bilirubin (0.2-1.0) mg/dL AST (15-37) IU/L ALT (14-63) IU/L Alkaline Phosphatase (46-116) U/L Troponin I < 0.050 (0.000-0.056) ng/mL Total Protein (6.4-8.2) g/dL Albumin (3.4-5.0) g/dL Globulin (2.6-4.0) g/dL Albumin/Globulin Ratio (0.9-1.6) Lipase (73-393) U/L Urine Color Urine Appearance Urine pH (5.0-8.0) Ur Specific Clinton (1.001-1.035) Urine Protein (NEGATIVE) mg/dL Urine Glucose (UA) (NEGATIVE) mg/dL Urine Ketones (NEGATIVE) mg/dL Urine Occult Blood (NEGATIVE) Urine Nitrite (NEGATIVE) Urine Bilirubin (NEGATIVE) Urine Urobilinogen (<2.0) EU/dL Ur Leukocyte Esterase (NEGATIVE) 01/30/21 01/30/21 Range/Units 16:41 18:43 WBC (4.0-11.0) K/uL RBC (4.50-5.90) M/uL Hgb (13.0-17.0) g/dL Hct (38.0-50.0) % MCV (80.0-98.0) fL MCH (27.0-32.0) pg MCHC (31.0-37.0) g/dL RDW Std Deviation (28.0-62.0) fl RDW Coeff of Negro (11.0-15.0) % Plt Count (150-400) K/uL MPV (7.40-12.00) fL Neut % (Auto) (48.0-80.0) % Lymph % (Auto) (16.0-40.0) % [place] % (Auto) (0.0-15.0) % Eos % (Auto) (0.0-7.0) % Baso % (Auto) (0.0-1.5) % Neut # (Auto) (1.4-5.7) K/uL Lymph # (Auto) (0.6-2.4) K/uL [place] # (Auto) (0.0-0.8) K/uL Eos # (Auto) (0.0-0.7) K/uL Baso # (Auto) (0.0-0.1) K/uL Sodium (136-148) mmol/L Potassium (3.5-5.1) mmol/L Chloride (98-107) mmol/L Carbon Dioxide (21.0-32.0) mmol/L BUN (7.0-18.0) mg/dL Creatinine (0.8-1.3) mg/dL Est Cr Clr Drug Dosing mL/min Estimated GFR (MDRD) ml/min Glucose (74-106) mg/dL POC Glucose 112 H (60-110) mg/dL Calcium (8.5-10.1) mg/dL Total Bilirubin (0.2-1.0) mg/dL AST (15-37) IU/L ALT (14-63) IU/L Alkaline Phosphatase (46-116) U/L Troponin I (0.000-0.056) ng/mL Total Protein (6.4-8.2) g/dL Albumin (3.4-5.0) g/dL Globulin (2.6-4.0) g/dL Albumin/Globulin Ratio (0.9-1.6) Lipase (73-393) U/L Urine Color YELLOW Urine Appearance CLEAR Urine pH 7.0 (5.0-8.0) Ur Specific [place] 1.015 (1.001-1.035) Urine Protein NEGATIVE (NEGATIVE) mg/dL Urine Glucose (UA) NEGATIVE (NEGATIVE) mg/dL Urine Ketones NEGATIVE (NEGATIVE) mg/dL Urine Occult Blood NEGATIVE (NEGATIVE) Urine Nitrite NEGATIVE (NEGATIVE) Urine Bilirubin NEGATIVE (NEGATIVE) Urine Urobilinogen 0.2 (<2.0) EU/dL Ur Leukocyte Esterase NEGATIVE (NEGATIVE) Meds: Medications Generic Name Dose Route Start Last Admin Trade Name Freq PRN Reason Stop Dose Admin Sodium Chloride 10 ml 01/30/21 14:42 01/30/21 14:45 Sodium Chloride 0.9% 10 Ml Syringe FLUSH 10 ml ASDIRECTED PRN Administration Keep Vein Open Sodium Chloride 2.5 ml 01/30/21 14:42 01/30/21 14:45 Sodium Chloride 0.9% 2.5 Ml Syringe FLUSH 2.5 ml ASDIRECTED PRN Administration Keep Vein Open Discontinued Medications Generic Name Dose Route Start Last Admin Trade Name Freq PRN Reason Stop Dose Admin Dextrose/Water 25 ml 01/30/21 14:55 01/30/21 15:08 50% Dextrose In Water 50 Ml Syringe IVPUSH 01/30/21 14:56 25 ml ONETIME ONE Administration Sodium Chloride 1,000 mls @ 999 mls/hr 01/30/21 14:55 01/30/21 15:08 Normal Saline IV 01/30/21 15:55 999 mls/hr STAT ONE Administration Departure - Departure Time of Disposition: 18:54 Disposition: Home, Self-Care 01 Clinical Impression: Hypoglycemia, Misuse of medication - Discharge Information Referrals: PCP,None [Primary Care Provider] - Forms: ED Department Discharge Additional Instructions: The following information is given to patients seen in the emergency department who are being discharged to home. This information is to outline your options for follow-up care. We provide all patients seen in our emergency department with a follow-up referral. The need for follow-up, as well as the timing and circumstances, are variable depending upon the specifics of your emergency department visit. If you don't have a primary care physician on staff, we will provide you with a referral. We always advise you to contact your personal physician following an emergency department visit to inform them of the circumstance of the visit and for follow-up with them and/or the need for any referrals to a consulting specialist. The emergency department will also refer you to a specialist when appropriate. This referral assures that you have the opportunity for follow-up care with a specialist. All of these measure are taken in an effort to provide you with optimal care, which includes your follow-up. Under all circumstances we always encourage you to contact your private physician who remains a resource for coordinating your care. When calling for follow-up care, please make the office aware that this follow-up is from your recent emergency room visit. If for any reason you are refused follow-up, please contact the [facility] Emergency Department at and asked to speak to the emergency department charge nurse. [facility] [address] [place] [id number] [address] [address] 1. Stop taking Metformin and Glipizide until you have followed up with your primary care provider for medication management. 2. Closely monitor your blood sugar at home. You should be checking your sugars every 4 hours at home or sooner if symptomatic. 3. Follow-up with your primary care provider this week as discussed. Return to the ED as needed and as discussed. Sepsis Event Note (ED) - Evaluation Sepsis Screening Result: No Definite Risk - Focused Exam Vital Signs: Vital Signs Temp Pulse Resp BP Pulse Ox 01/30/21 16:41 69 114/63 95 01/30/21 15:41 66 129/71 97 01/30/21 14:50 97.7 F 83 18 134/76 96 - My Orders Last 24 Hours: My Active Orders 01/30/21 14:42 Sodium Chloride 0.9% [Saline Flush] 10 ml FLUSH ASDIRECTED PRN Sodium Chloride 0.9% [Saline Flush] 2.5 ml FLUSH ASDIRECTED PRN Saline Lock Insert [OM.PC] Stat 01/30/21 14:56 EKG Documentation Completion [RC] STAT 01/30/21 15:27 Glucose [Blood Glucose Check, Bedside] [RC] ONETIME 01/30/21 15:28 Glucose [Blood Glucose Check, Bedside] [RC] ONETIME 01/30/21 16:15 Glucose [Blood Glucose Check, Bedside] [RC] ONETIME 01/30/21 18:29 Glucose [Blood Glucose Check, Bedside] [RC] BIDMEALS - Assessment/Plan Last 24 Hours: My Active Orders 01/30/21 14:42 Sodium Chloride 0.9% [Saline Flush] 10 ml FLUSH ASDIRECTED PRN Sodium Chloride 0.9% [Saline Flush] 2.5 ml FLUSH ASDIRECTED PRN Saline Lock Insert [OM.PC] Stat 01/30/21 14:56 EKG Documentation Completion [RC] STAT 01/30/21 15:27 Glucose [Blood Glucose Check, Bedside] [RC] ONETIME 01/30/21 15:28 Glucose [Blood Glucose Check, Bedside] [RC] ONETIME 01/30/21 16:15 Glucose [Blood Glucose Check, Bedside] [RC] ONETIME 01/30/21 18:29 Glucose [Blood Glucose Check, Bedside] [RC] BIDMEALS
== END 2021-01-30 19:10 | disposition home or self-care (01) ==
LOC: MW.ED 14:15
DX: E11.649 Type 2 diabetes mellitus with hypoglycemia without coma (principal); F19.90 Other psychoactive substance use, unspecified, uncomplicated; Z79.84 Long term (current) use of oral hypoglycemic drugs; Z79.01 Long term (current) use of anticoagulants; Z79.899 Other long term (current) drug therapy
CPT/HCPCS: 36415; 70450; 71045; 80053; 81003; 82962; 83690; 84484; 85025; 93005; 96374; 99285; J7030; 93010; 99284

== ENCOUNTER 2023-01-07 14:36 | Emergency (ER) | payer MEDICARE, MEDICAID | END 2023-01-07 15:23 | LOC: MW.ED 14:36 | DX: Z02.89 Encounter for other administrative examinations (principal); I48.91 Unspecified atrial fibrillation; I10 Essential (primary) hypertension; E13.9 Other specified diabetes mellitus without complications; Z79.84 Long term (current) use of oral hypoglycemic drugs; Z79.01 Long term (current) use of anticoagulants; Z79.899 Other long term (current) drug therapy | CPT/HCPCS: 82947; 93005; 93010; 99283 ==

== ENCOUNTER 2023-09-01 15:30 | Emergency (ER) | payer MEDICARE, MEDICAID ==
[2023-09-01] MEDS ORDERED: metFORMIN 500 MG Tab.ER PO SCH (17:30)
== END 2023-09-01 16:45 ==
LOC: MW.ED 15:30
DX: Z02.89 Encounter for other administrative examinations (principal); I10 Essential (primary) hypertension; I48.91 Unspecified atrial fibrillation; E13.9 Other specified diabetes mellitus without complications; Z79.84 Long term (current) use of oral hypoglycemic drugs; Z79.01 Long term (current) use of anticoagulants; Z79.899 Other long term (current) drug therapy
CPT/HCPCS: 82947; 99283; A9270; 99282

== ENCOUNTER 2023-09-24 10:33 | Emergency (ER) | payer MEDICARE, MEDICAID | END 2023-09-24 10:53 | LOC: MW.ED 10:33 | DX: Z02.89 Encounter for other administrative examinations (principal); I10 Essential (primary) hypertension; E10.9 Type 1 diabetes mellitus without complications; I48.91 Unspecified atrial fibrillation; Z79.84 Long term (current) use of oral hypoglycemic drugs; Z79.899 Other long term (current) drug therapy | CPT/HCPCS: 82947; 99283 ==

== ENCOUNTER 2023-12-08 14:38 | Emergency (ER) | payer MEDICARE, MEDICAID | END 2023-12-08 15:19 | disposition home or self-care (01) | LOC: MW.ED 14:38 | DX: I10 Essential (primary) hypertension; E10.9 Type 1 diabetes mellitus without complications; I48.91 Unspecified atrial fibrillation; Z79.4 Long term (current) use of insulin; Z79.01 Long term (current) use of anticoagulants; Z79.899 Other long term (current) drug therapy | CPT/HCPCS: 99282 ==

== ENCOUNTER 2025-05-15 06:06 | Emergency (ER) | payer MEDICARE ==
[2025-05-15] MEDS ORDERED: Sodium Chloride 0.9% 10 ML Syringe FLUSH PRN (06:32)
[2025-05-15] MEDS ORDERED: Sodium Chloride 0.9% 2.5 ML Syringe FLUSH PRN (06:32)
[2025-05-15 06:51] LABS: BASOPHILS ABSOLUTE AUTO 0.06 K/uL (0.00-0.20); BASOPHILS PERCENT AUTO 0.9 % (0.0-1.0); EOSINOPHILS ABSOLUTE AUTO 0.29 K/uL (0.00-0.45); EOSINOPHILS PERCENT AUTO 4.6 % (0.0-6.0); IMMATURE GRAN ABSOLUTE AUTO 0.04 K/uL (0.00-0.05); IMMATURE GRAN PERCENT AUTO 0.6 % (0.0-0.4); LYMPHOCYTES ABSOLUTE AUTO 2.32 K/uL (1.00-4.80); LYMPHOCYTES PERCENT AUTO 36.5 % (24.0-44.0); MEAN PLATELET VOLUME 9.6 fL (9.4-12.4); MONOCYTES ABSOLUTE AUTO 0.94 K/uL (0.00-0.80); MONOCYTES PERCENT AUTO 14.8 % (0.0-8.0); NEUTROPHILS ABSOLUTE AUTO 2.70 K/uL (1.80-7.70); NEUTROPHILS PERCENT AUTO 42.6 % (41.0-71.0); NRBC ABSOLUTE 0.00 K/uL (0.00-0.02); NRBC PERCENT 0.0 /100WBC (0.0-0.2); PLATELET COUNT,PLT 171 K/uL (150-400); RED BLOOD CELL COUNT 5.04 M/uL (4.52-5.90); WHITE BLOOD CELL COUNT,WBC 6.35 K/uL (3.9-11.3)
[2025-05-15 07:14] LABS: A/G RATIO 1.1 (0.9-1.6); ALANINE AMINOTRANSFERASE,ALT 67.0 IU/L (14-63); ASPARTATE AMNIOTRANSFERASE,AST 38.0 IU/L (15-37); BILIRUBIN TOTAL 0.7 mg/dL (0.2-1.0); BLOOD UREA NITROGEN,BUN 17.0 mg/dL (7.0-18.0); CARBON DIOXIDE,CO2 32.1 mmol/L (21.0-32.0); CHLORIDE,CL 100.0 mmol/L (98-107); CREATININE 1.0 mg/dL (0.8-1.3); EST CRCL DRUG DOSING (CG) 66.77 mL/min; GLUCOSE RANDOM 119.0 mg/dL (74-106); POTASSIUM,K 3.8 mmol/L (3.5-5.1); PROTEIN TOTAL,TP 7.1 g/dL (6.4-8.2); SODIUM,NA 138.0 mmol/L (136-148)
[2025-05-15 07:17] LABS: ESTIMATED GFR 80.0 mL/min (>60)
== END 2025-05-15 12:52 | disposition home or self-care (01) ==
LOC: MW.ED 06:06
DX: L03.114 Cellulitis of left upper limb (principal); L98.499 Non-pressure chronic ulcer of skin of other sites with unspecified severity; I48.91 Unspecified atrial fibrillation; I50.9 Heart failure, unspecified; J44.9 Chronic obstructive pulmonary disease, unspecified; E11.9 Type 2 diabetes mellitus without complications; Z87.891 Personal history of nicotine dependence; Z88.8 Allergy status to other drugs, medicaments and biological substances; Z79.4 Long term (current) use of insulin; Z79.899 Other long term (current) drug therapy
CPT/HCPCS: 36415; 80053; 85025; 87040; 93971; 96365; 99284; J2543; 99283